=== PATIENT | male | born 1975 | race Caucasian/White ===

== ENCOUNTER 2017-12-08 | Emergency (ER) | END 2017-12-08 19:05 | disposition home or self-care (01) ==

== ENCOUNTER 2018-03-17 10:31 | Emergency (ER) | payer OTHER ==
[~2018-03-17] VITALS: Ht 172.7 cm; Wt 63.5 kg
[~2018-03-17 10:31] MED LIST: ALBU90OI6 INH; Bactrim Ds Tab1 EACH PO; CEPH500 PO; Catapres0.1 MG PO; Cleocin HCl300 MG PO; DOXY100 PO; ENOX60I SC; GABA300 PO; HYDACE5 PO; HYDMOR2 PO; HYDMOR4 PO; HYDMOR8; HYDMOR8 PO; HYDPAM50 PO; HYDR25SUP PR; IBUP400 PO; INSLIS75I SUBQ; Imitrex25 MG PO; Imitrex50 MG PO; KETO30I; Keflex500 MG PO; METO100ER; MORP10S; Miralax17 GM PO; Mobic15 MG PO; Norco 5-325 Ta1 EACH PO; ONDA4ODT MM; ONDA8 PO; OXYC10TA19 PO; OXYC15ER PO; OXYC1TAB11; OXYC30ER PO; OXYC5; OXYC5 PO; PANT40 PO; PREG75 PO; PROM25 PO; Prednisone20 MG PO; RISP1 PO; RXHYDACE PO; SERT100; SULTRIDS PO; TRAM50 PO; Ultram50 MG PO; Valium5 MG PO; Zithromax250 MG PO; Zofran Odt4 MG SL
[2018-03-17] MEDS ORDERED: Inderal 20 mg T20 MG PO (12:39)
[2018-03-17 13:32] LABS: BASOPHILS ABSOLUTE AUTO 0.04 K/mm3 (0.00-0.23); BASOPHILS PERCENT AUTO 1 % (0-2); EOSINOPHILS ABSOLUTE AUTO 0.21 K/mm3 (0.00-0.68); EOSINOPHILS PERCENT AUTO 4 % (0-6); Hematocrit 36.9 % (37.0-53.0); Hemoglobin 12.2 g/dL (13.5-17.5); IMMATURE GRAN ABSOLUTE AUTO 0.01 K/mm3 (0.00-0.10); IMMATURE GRAN PERCENT AUTO 0 % (0-1); LYMPHOCYTES ABSOLUTE AUTO 1.74 K/mm3 (0.84-5.20); LYMPHOCYTES PERCENT AUTO 35 % (21-46); MONOCYTES ABSOLUTE AUTO 0.78 K/mm3 (0.16-1.47); MONOCYTES PERCENT AUTO 15 % (4-13); Mean Corpuscular HGB Conc 33.1 g/dL (31.5-36.5); Mean Corpuscular Volume 91 fL (80-100); Mean Platelet Volume 11.4 fL (9.1-12.4); NEUTROPHILS ABSOLUTE AUTO 2.27 K/mm3 (1.96-9.15); NEUTROPHILS PERCENT AUTO 45 % (41-73); Platelet Count 218 K/mm3 (150-400); RDW Coefficient Variation 14.2 % (11.7-14.2); RDW Standard Deviation 47.5 fL (35.1-46.3); Red Blood Cell Count 4.07 M/mm3 (4.30-5.90); White Blood Cell Count 5.05 K/mm3 (4.00-11.30)
[2018-03-17 14:06] LABS: Alanine Aminotransfer (ALT/SGP 50 U/L (12-78); Albumin, Blood 2.9 g/dL (3.4-5.0); Albumin/Globulin Ratio 0.6 (0.8-1.8); Alk Phos 85 U/L (50-136); Anion Gap 10 mmol/L (6-16); Aspartate Aminotrans (AST/SGOT 50 U/L (12-37); Bilirubin, Total 0.4 mg/dL (0.1-1.0); Blood Urea Nitrogen 12 mg/dL (8-24); Bun/Creatinine Ratio 17.7 (12.0-20.0); CO2, Blood 24 mmol/L (21-32); Calcium, Blood 8.7 mg/dL (8.5-10.1); Chloride, Blood 106 mmol/L (98-108); Creatinine, Blood 0.68 mg/dL (0.60-1.20); Globulin, Blood 5.1 g/dL (2.2-4.0); Glomerular Filtration Rate >60 (60-); Glucose, Blood 71 mg/dL (70-99); Potassium, Blood 3.9 mmol/L (3.5-5.5); Sodium, Blood 140 mmol/L (136-145)
== END 2018-03-17 14:44 | disposition home or self-care (01) ==
LOC: ER 10:31
PROVIDERS: Emergency Medicine
DX: T84.52XA Infection and inflammatory reaction due to internal left hip prosthesis, initial encounter (principal); G43.909 Migraine, unspecified, not intractable, without status migrainosus; F17.210 Nicotine dependence, cigarettes, uncomplicated; Z88.6 Allergy status to analgesic agent; Z88.8 Allergy status to other drugs, medicaments and biological substances; Z88.0 Allergy status to penicillin; Z88.5 Allergy status to narcotic agent; Z79.899 Other long term (current) drug therapy
CPT/HCPCS: 36415; 80053; 85025; 85651; 86141; 96374; 96375; 99284; J2405; J3010

== ENCOUNTER 2018-03-19 16:40 | Emergency (ER) | payer OTHER ==
[~2018-03-19] VITALS: Ht 172.7 cm; Wt 61.2 kg
[~2018-03-19 16:40] MED LIST changes: +Inderal 20 mg T20 MG PO
[2018-03-19] MEDS ORDERED: KETO10 PO (17:06)
== END 2018-03-19 17:12 | disposition home or self-care (01) ==
LOC: ER 16:40
DX: T84.52XA Infection and inflammatory reaction due to internal left hip prosthesis, initial encounter (principal); Z76.0 Encounter for issue of repeat prescription; Z88.6 Allergy status to analgesic agent; Z88.0 Allergy status to penicillin; Z88.5 Allergy status to narcotic agent; Z88.8 Allergy status to other drugs, medicaments and biological substances; Z79.899 Other long term (current) drug therapy; G43.909 Migraine, unspecified, not intractable, without status migrainosus; Z85.3 Personal history of malignant neoplasm of breast; F17.210 Nicotine dependence, cigarettes, uncomplicated
CPT/HCPCS: 99282

== ENCOUNTER 2018-03-25 18:00 | Emergency (ER) | payer OTHER ==
[~2018-03-25] VITALS: Ht 170.2 cm; Wt 60.8 kg
[~2018-03-25 18:00] MED LIST changes: +KETO10 PO
[2018-03-25] MEDS ORDERED: SUMA6I SC (18:08)
== END 2018-03-25 18:42 | disposition home or self-care (01) ==
LOC: ER 18:00
DX: T84.52XA Infection and inflammatory reaction due to internal left hip prosthesis, initial encounter (principal); R51 Headache; I10 Essential (primary) hypertension; Z79.899 Other long term (current) drug therapy
CPT/HCPCS: 96372; 99283; J1885

== ENCOUNTER 2018-06-22 21:12 | Inpatient (IN) | payer OTHER ==
[~2018-06-22] VITALS: Ht 170.2 cm; Wt 59.8 kg
[~2018-06-22 21:12] MED LIST changes: +SUMA6I SC
[2018-06-22] MEDS ORDERED: BUPRENORPHIN-N1 EACH SL (21:30)
[2018-06-22 22:37] LABS: BASOPHILS ABSOLUTE AUTO 0.07 K/mm3 (0.00-0.23); BASOPHILS PERCENT AUTO 1 % (0-2); EOSINOPHILS ABSOLUTE AUTO 0.55 K/mm3 (0.00-0.68); EOSINOPHILS PERCENT AUTO 8 % (0-6); Hematocrit 30.8 % (37.0-53.0); Hemoglobin 9.4 g/dL (13.5-17.5); IMMATURE GRAN ABSOLUTE AUTO 0.01 K/mm3 (0.00-0.10); IMMATURE GRAN PERCENT AUTO 0 % (0-1); LYMPHOCYTES ABSOLUTE AUTO 2.17 K/mm3 (0.84-5.20); LYMPHOCYTES PERCENT AUTO 32 % (21-46); MONOCYTES ABSOLUTE AUTO 0.52 K/mm3 (0.16-1.47); MONOCYTES PERCENT AUTO 8 % (4-13); Mean Corpuscular HGB 23.3 pg (26.0-34.0); Mean Corpuscular HGB Conc 30.5 g/dL (31.5-36.5); Mean Corpuscular Volume 76 fL (80-100); Mean Platelet Volume 12.8 fL (9.1-12.4); NEUTROPHILS ABSOLUTE AUTO 3.49 K/mm3 (1.96-9.15); NEUTROPHILS PERCENT AUTO 51 % (41-73); Platelet Count 281 K/mm3 (150-400); RDW Coefficient Variation 15.7 % (11.7-14.2); RDW Standard Deviation 43.1 fL (35.1-46.3); Red Blood Cell Count 4.03 M/mm3 (4.30-5.90); White Blood Cell Count 6.81 K/mm3 (4.00-11.30)
[2018-06-22 22:55] LABS: Alanine Aminotransfer (ALT/SGP 21 U/L (12-78); Albumin, Blood 3.3 g/dL (3.4-5.0); Albumin/Globulin Ratio 0.7 (0.8-1.8); Alk Phos 101 U/L (50-136); Anion Gap 11 mmol/L (6-16); Aspartate Aminotrans (AST/SGOT 28 U/L (12-37); Bilirubin, Total 0.1 mg/dL (0.1-1.0); Blood Urea Nitrogen 8 mg/dL (8-24); Bun/Creatinine Ratio 14.9 (12.0-20.0); CO2, Blood 24 mmol/L (21-32); Calcium, Blood 8.4 mg/dL (8.5-10.1); Chloride, Blood 104 mmol/L (98-108); Creatinine, Blood 0.54 mg/dL (0.60-1.20); Globulin, Blood 4.9 g/dL (2.2-4.0); Glomerular Filtration Rate >60 (60-); Glucose, Blood 86 mg/dL (70-99); Potassium, Blood 4.4 mmol/L (3.5-5.5); Sodium, Blood 139 mmol/L (136-145); Total Protein, Blood 8.2 g/dL (6.4-8.2)
[2018-06-23 02:32] LABS: Hematocrit 28.6 % (37.0-53.0); Hemoglobin 8.9 g/dL (13.5-17.5); Mean Corpuscular HGB 23.5 pg (26.0-34.0); Mean Corpuscular HGB Conc 31.1 g/dL (31.5-36.5); Mean Corpuscular Volume 76 fL (80-100); Platelet Count 154 K/mm3 (150-400); RDW Coefficient Variation 15.7 % (11.7-14.2); Red Blood Cell Count 3.78 M/mm3 (4.30-5.90); White Blood Cell Count 4.98 K/mm3 (4.00-11.30)
[2018-06-23 02:33] LABS: Mean Platelet Volume 13.3 fL (9.1-12.4)
[2018-06-23 02:45] LABS: Alanine Aminotransfer (ALT/SGP 18 U/L (12-78); Albumin, Blood 3.1 g/dL (3.4-5.0); Albumin/Globulin Ratio 0.7 (0.8-1.8); Alk Phos 91 U/L (50-136); Anion Gap 13 mmol/L (6-16); Aspartate Aminotrans (AST/SGOT 24 U/L (12-37); Bilirubin, Total 0.2 mg/dL (0.1-1.0); Blood Urea Nitrogen 8 mg/dL (8-24); Bun/Creatinine Ratio 14.6 (12.0-20.0); CO2, Blood 22 mmol/L (21-32); Calcium, Blood 8.1 mg/dL (8.5-10.1); Chloride, Blood 107 mmol/L (98-108); Creatinine, Blood 0.55 mg/dL (0.60-1.20); Globulin, Blood 4.4 g/dL (2.2-4.0); Glomerular Filtration Rate >60 (60-); Glucose, Blood 96 mg/dL (70-99); Potassium, Blood 3.8 mmol/L (3.5-5.5); Sodium, Blood 142 mmol/L (136-145); Total Protein, Blood 7.5 g/dL (6.4-8.2)
[2018-06-24 05:41] LABS: BASOPHILS ABSOLUTE AUTO 0.05 K/mm3 (0.00-0.23); BASOPHILS PERCENT AUTO 1 % (0-2); EOSINOPHILS ABSOLUTE AUTO 0.34 K/mm3 (0.00-0.68); EOSINOPHILS PERCENT AUTO 8 % (0-6); Hematocrit 30.5 % (37.0-53.0); Hemoglobin 9.6 g/dL (13.5-17.5); IMMATURE GRAN ABSOLUTE AUTO 0.02 K/mm3 (0.00-0.10); IMMATURE GRAN PERCENT AUTO 1 % (0-1); LYMPHOCYTES ABSOLUTE AUTO 1.21 K/mm3 (0.84-5.20); LYMPHOCYTES PERCENT AUTO 28 % (21-46); MONOCYTES ABSOLUTE AUTO 0.49 K/mm3 (0.16-1.47); MONOCYTES PERCENT AUTO 11 % (4-13); Mean Corpuscular HGB 23.7 pg (26.0-34.0); Mean Corpuscular HGB Conc 31.5 g/dL (31.5-36.5); Mean Corpuscular Volume 75 fL (80-100); NEUTROPHILS ABSOLUTE AUTO 2.24 K/mm3 (1.96-9.15); NEUTROPHILS PERCENT AUTO 52 % (41-73); Platelet Count 173 K/mm3 (150-400); RDW Coefficient Variation 15.5 % (11.7-14.2); RDW Standard Deviation 42.6 fL (35.1-46.3); Red Blood Cell Count 4.05 M/mm3 (4.30-5.90); White Blood Cell Count 4.35 K/mm3 (4.00-11.30)
[2018-06-24 06:04] LABS: Percent Saturation 8.3 % (20.0-50.0)
[2018-06-24 06:13] LABS: Albumin, Blood 3.5 g/dL (3.4-5.0); Anion Gap 12 mmol/L (6-16); Blood Urea Nitrogen 8 mg/dL (8-24); Bun/Creatinine Ratio 12.1 (12.0-20.0); CO2, Blood 23 mmol/L (21-32); Calcium, Blood 9.2 mg/dL (8.5-10.1); Chloride, Blood 105 mmol/L (98-108); Creatinine, Blood 0.66 mg/dL (0.60-1.20); Glomerular Filtration Rate >60 (60-); Glucose, Blood 97 mg/dL (70-99); Phosphorus, Blood 3.5 mg/dL (2.5-4.9); Potassium, Blood 4.1 mmol/L (3.5-5.5); Sodium, Blood 140 mmol/L (136-145)
[2018-06-24] MEDS ORDERED: GABA300T24 PO (12:03)
[2018-06-24] MEDS ORDERED: NICO21TP TOP (12:03)
[2018-06-24] MEDS ORDERED: LEVO750 PO (12:04)
[2018-06-24] MEDS ORDERED: SACC250C PO (12:04)
[2018-06-24] MEDS ORDERED: Hair, Skin & N1 EACH PO (12:04)
== END 2018-06-24 13:21 | disposition home or self-care (01) | DRG 603 ==
LOC: ER 21:12 → MEDS 21:13 → ENPENDDIS 06-24 10:22 → MEDS 06-24 13:21
PROVIDERS: Emergency Medicine; Family Medicine; Internal Medicine
DX: L03.115 Cellulitis of right lower limb (principal); M86.9 Osteomyelitis, unspecified; L03.114 Cellulitis of left upper limb; F11.20 Opioid dependence, uncomplicated; E87.2 Acidosis; Z86.14 Personal history of Methicillin resistant Staphylococcus aureus infection; F17.210 Nicotine dependence, cigarettes, uncomplicated; B35.1 Tinea unguium; G43.909 Migraine, unspecified, not intractable, without status migrainosus; G62.9 Polyneuropathy, unspecified; F41.9 Anxiety disorder, unspecified; F10.10 Alcohol abuse, uncomplicated; F31.9 Bipolar disorder, unspecified; Z91.19 Patient's noncompliance with other medical treatment and regimen
CPT/HCPCS: 36415; 73620; 80053; 80069; 82607; 82728; 82746; 83540; 83550; 83605; 85025; 85027; 87040; 87081; 93970; 96361; 96365; 96366; 96367; 96372; 96375; 99285-25; G0378; J0690; J1650; J2405; J3370; J7030; J7050

== ENCOUNTER 2018-07-12 09:17 | Emergency (ER) | payer OTHER ==
[~2018-07-12] VITALS: Ht 170.2 cm; Wt 59.0 kg
[~2018-07-12 09:17] MED LIST changes: +BUPRENORPHIN-N1 EACH SL; +GABA300T24 PO; +Hair, Skin & N1 EACH PO; +LEVO750 PO; +NICO21TP TOP; +SACC250C PO
[2018-07-12] MEDS ORDERED: Keflex500 MG PO (11:20)
[2018-07-12] MEDS ORDERED: Bactrim Ds Tab1 EACH PO (11:20)
== END 2018-07-12 11:35 | disposition home or self-care (01) ==
LOC: ER 09:17
DX: L03.115 Cellulitis of right lower limb (principal); Z88.6 Allergy status to analgesic agent; Z88.0 Allergy status to penicillin; Z88.5 Allergy status to narcotic agent; Z88.8 Allergy status to other drugs, medicaments and biological substances; Z79.899 Other long term (current) drug therapy; G43.909 Migraine, unspecified, not intractable, without status migrainosus; F17.200 Nicotine dependence, unspecified, uncomplicated
CPT/HCPCS: 93971; 99283-25

== ENCOUNTER 2018-08-16 06:27 | Emergency (ER) | payer OTHER ==
[~2018-08-16] VITALS: Ht 170.2 cm; Wt 60.8 kg
[~2018-08-16 06:27] MED LIST changes: +HYDHCL25 PO
[2018-08-16] MEDS ORDERED: Vistaril50 MG PO (07:37)
== END 2018-08-16 08:40 | disposition home or self-care (01) ==
LOC: ER 06:27
DX: F41.9 Anxiety disorder, unspecified (principal); F22 Delusional disorders; F17.210 Nicotine dependence, cigarettes, uncomplicated; Z88.6 Allergy status to analgesic agent; Z88.8 Allergy status to other drugs, medicaments and biological substances; Z88.0 Allergy status to penicillin; Z88.5 Allergy status to narcotic agent; Z79.899 Other long term (current) drug therapy
CPT/HCPCS: 96372; 99284-25; J1200

== ENCOUNTER 2019-03-10 16:24 | Emergency (ER) | payer OTHER ==
[~2019-03-10] VITALS: Ht 170.2 cm; Wt 62.6 kg
[~2019-03-10 16:24] MED LIST changes: +BUPRENORPHINE HC2 MG SL; +IBUP600 PO; +Vistaril50 MG PO; +Zofran8 MG PO
[2019-03-10 19:20] LABS: BASOPHILS ABSOLUTE AUTO 0.03 K/mm3 (0.00-0.23); BASOPHILS PERCENT AUTO 1 % (0-2); EOSINOPHILS ABSOLUTE AUTO 0.23 K/mm3 (0.00-0.68); EOSINOPHILS PERCENT AUTO 6 % (0-6); Hematocrit 38.8 % (37.0-53.0); Hemoglobin 12.6 g/dL (13.5-17.5); IMMATURE GRAN ABSOLUTE AUTO 0.01 K/mm3 (0.00-0.10); IMMATURE GRAN PERCENT AUTO 0 % (0-1); LYMPHOCYTES ABSOLUTE AUTO 1.24 K/mm3 (0.84-5.20); LYMPHOCYTES PERCENT AUTO 34 % (21-46); MONOCYTES ABSOLUTE AUTO 0.32 K/mm3 (0.16-1.47); MONOCYTES PERCENT AUTO 9 % (4-13); Mean Corpuscular HGB 29.9 pg (26.0-34.0); Mean Corpuscular HGB Conc 32.5 g/dL (31.5-36.5); Mean Corpuscular Volume 92 fL (80-100); Mean Platelet Volume 12.2 fL (9.1-12.4); NEUTROPHILS ABSOLUTE AUTO 1.81 K/mm3 (1.96-9.15); NEUTROPHILS PERCENT AUTO 50 % (41-73); Platelet Count 144 K/mm3 (150-400); RDW Coefficient Variation 15.7 % (11.7-14.2); Red Blood Cell Count 4.22 M/mm3 (4.30-5.90); White Blood Cell Count 3.64 K/mm3 (4.00-11.30)
[2019-03-10 19:44] LABS: Alanine Aminotransfer (ALT/SGP 110 U/L (12-78); Albumin, Blood 3.6 g/dL (3.4-5.0); Albumin/Globulin Ratio 0.8 (0.8-1.8); Alk Phos 86 U/L (50-136); Anion Gap 8 mmol/L (6-16); Aspartate Aminotrans (AST/SGOT 104 U/L (12-37); Bilirubin, Total 0.5 mg/dL (0.1-1.0); Blood Urea Nitrogen 13 mg/dL (8-24); Bun/Creatinine Ratio 16.2 (12.0-20.0); CO2, Blood 25 mmol/L (21-32); Calcium, Blood 8.5 mg/dL (8.5-10.1); Chloride, Blood 105 mmol/L (98-108); Ethanol (Alcohol), Blood, Med 138 mg/dL; Globulin, Blood 4.4 g/dL (2.2-4.0); Glomerular Filtration Rate >60 (60-); Glucose, Blood 107 mg/dL (70-99); Potassium, Blood 3.9 mmol/L (3.5-5.5); Sodium, Blood 138 mmol/L (136-145)
[2019-03-10 20:47] LABS: U Amphetamine Screen Not Detected; U Barbituate Screen Not Detected; U Benzodiazapine Screen Not Detected; U Buprenorphine Screen Not Detected; U Cannabinoids Screen Not Detected; U Cocaine Screen Not Detected; U Methadone Screen Not Detected; U Methamphetamine Screen Not Detected; U Opiates Screen Not Detected; U Oxycodone Screen Not Detected; U Phencyclidine Screen Not Detected; U Propoxyphene Screen Not Detected
== END 2019-03-10 22:58 | disposition home or self-care (01) ==
LOC: ER 16:24
PROVIDERS: Emergency Medicine
DX: R47.1 Dysarthria and anarthria (principal); Z72.89 Other problems related to lifestyle; Z99.3 Dependence on wheelchair; Z89.621 Acquired absence of right hip joint; Z89.622 Acquired absence of left hip joint; Z88.6 Allergy status to analgesic agent; Z88.8 Allergy status to other drugs, medicaments and biological substances; Z88.0 Allergy status to penicillin; Z88.5 Allergy status to narcotic agent; Z79.899 Other long term (current) drug therapy; G43.909 Migraine, unspecified, not intractable, without status migrainosus; Z85.3 Personal history of malignant neoplasm of breast; F17.210 Nicotine dependence, cigarettes, uncomplicated
CPT/HCPCS: 36415; 71260; 80053; 85025; 85379; 93005; 93010; 96374-59; 96375-59; 99284-25; G0480; J1200; J2765; J7120; Q9967

== ENCOUNTER 2019-07-08 18:56 | Emergency (ER) | payer OTHER ==
[~2019-07-08] VITALS: Ht 170.2 cm; Wt 62.1 kg
[2019-07-08 19:51] LABS: BASOPHILS ABSOLUTE AUTO 0.01 K/mm3 (0.00-0.23); BASOPHILS PERCENT AUTO 0 % (0-2); EOSINOPHILS ABSOLUTE AUTO 0.01 K/mm3 (0.00-0.68); EOSINOPHILS PERCENT AUTO 0 % (0-6); Hematocrit 41.6 % (37.0-53.0); Hemoglobin 13.5 g/dL (13.5-17.5); IMMATURE GRAN ABSOLUTE AUTO 0.05 K/mm3 (0.00-0.10); IMMATURE GRAN PERCENT AUTO 1 % (0-1); LYMPHOCYTES ABSOLUTE AUTO 0.57 K/mm3 (0.84-5.20); LYMPHOCYTES PERCENT AUTO 11 % (21-46); MONOCYTES ABSOLUTE AUTO 0.51 K/mm3 (0.16-1.47); MONOCYTES PERCENT AUTO 9 % (4-13); Mean Corpuscular HGB 31.5 pg (26.0-34.0); Mean Corpuscular HGB Conc 32.5 g/dL (31.5-36.5); Mean Corpuscular Volume 97 fL (80-100); Mean Platelet Volume 12.2 fL (9.1-12.4); NEUTROPHILS ABSOLUTE AUTO 4.25 K/mm3 (1.96-9.15); NEUTROPHILS PERCENT AUTO 79 % (41-73); Platelet Count 170 K/mm3 (150-400); RDW Coefficient Variation 13.8 % (11.7-14.2); RDW Standard Deviation 49.1 fL (35.1-46.3); Red Blood Cell Count 4.28 M/mm3 (4.30-5.90)
[2019-07-08 20:16] LABS: Albumin, Blood 3.9 g/dL (3.4-5.0); Albumin/Globulin Ratio 0.9 (0.8-1.8); Alk Phos 198 U/L (50-136); Anion Gap 22 mmol/L (6-16); Bilirubin, Total 3.2 mg/dL (0.1-1.0); Blood Urea Nitrogen 16 mg/dL (8-24); Bun/Creatinine Ratio 11.9 (12.0-20.0); CO2, Blood 17 mmol/L (21-32); Calcium, Blood 9.4 mg/dL (8.5-10.1); Chloride, Blood 93 mmol/L (98-108); Creatinine, Blood 1.35 mg/dL (0.60-1.20); Globulin, Blood 4.4 g/dL (2.2-4.0); Glomerular Filtration Rate >60 (60-); Glucose, Blood 83 mg/dL (70-99); Potassium, Blood 3.3 mmol/L (3.5-5.5); Sodium, Blood 132 mmol/L (136-145); Total Protein, Blood 8.3 g/dL (6.4-8.2)
[2019-07-08 20:41] LABS: Alanine Aminotransfer (ALT/SGP 3118 U/L (12-78); Aspartate Aminotrans (AST/SGOT 13137 U/L (12-37)
[2019-07-08] MEDS ORDERED: CHLO25 PO (21:32)
== END 2019-07-08 22:07 | disposition home or self-care (01) ==
LOC: ER 18:56
PROVIDERS: Physician Assistant
DX: I95.9 Hypotension, unspecified (principal); K70.9 Alcoholic liver disease, unspecified; E87.6 Hypokalemia; F10.239 Alcohol dependence with withdrawal, unspecified; Y90.4 Blood alcohol level of 80-99 mg/100 ml; Z88.6 Allergy status to analgesic agent; Z88.0 Allergy status to penicillin; Z88.5 Allergy status to narcotic agent; Z88.8 Allergy status to other drugs, medicaments and biological substances; Z85.3 Personal history of malignant neoplasm of breast
CPT/HCPCS: 36415; 71045; 80053; 82140; 83605; 83690; 84484; 85025; 87040; 93005; 93010; 96361; 96374; 96376; 99285-25; G0480; J2405; J7030

== ENCOUNTER 2019-08-26 15:27 | Emergency (ER) | payer OTHER ==
[~2019-08-26] VITALS: Ht 170.2 cm; Wt 61.7 kg
[~2019-08-26 15:27] MED LIST changes: +CHLO25 PO
[2019-08-26 16:04] LABS: BASOPHILS ABSOLUTE AUTO 0.06 K/mm3 (0.00-0.23); BASOPHILS PERCENT AUTO 1 % (0-2); EOSINOPHILS ABSOLUTE AUTO 0.42 K/mm3 (0.00-0.68); EOSINOPHILS PERCENT AUTO 6 % (0-6); Hematocrit 37.8 % (37.0-53.0); Hemoglobin 12.4 g/dL (13.5-17.5); IMMATURE GRAN ABSOLUTE AUTO 0.02 K/mm3 (0.00-0.10); IMMATURE GRAN PERCENT AUTO 0 % (0-1); LYMPHOCYTES PERCENT AUTO 17 % (21-46); MONOCYTES ABSOLUTE AUTO 0.58 K/mm3 (0.16-1.47); MONOCYTES PERCENT AUTO 8 % (4-13); Mean Corpuscular HGB 32.5 pg (26.0-34.0); Mean Corpuscular HGB Conc 32.8 g/dL (31.5-36.5); Mean Corpuscular Volume 99 fL (80-100); Mean Platelet Volume 11.5 fL (9.1-12.4); NEUTROPHILS ABSOLUTE AUTO 4.73 K/mm3 (1.96-9.15); NEUTROPHILS PERCENT AUTO 67 % (41-73); Platelet Count 209 K/mm3 (150-400); RDW Coefficient Variation 14.2 % (11.7-14.2); RDW Standard Deviation 51.6 fL (35.1-46.3); Red Blood Cell Count 3.82 M/mm3 (4.30-5.90); White Blood Cell Count 7.01 K/mm3 (4.00-11.30)
[2019-08-26 16:24] LABS: Alanine Aminotransfer (ALT/SGP 46 U/L (12-78); Albumin, Blood 3.1 g/dL (3.4-5.0); Albumin/Globulin Ratio 0.6 (0.8-1.8); Alk Phos 126 U/L (50-136); Anion Gap 14 mmol/L (6-16); Aspartate Aminotrans (AST/SGOT 55 U/L (12-37); Bilirubin, Total 0.4 mg/dL (0.1-1.0); Blood Urea Nitrogen 8 mg/dL (8-24); Bun/Creatinine Ratio 10.1 (12.0-20.0); CO2, Blood 21 mmol/L (21-32); Calcium, Blood 8.5 mg/dL (8.5-10.1); Chloride, Blood 102 mmol/L (98-108); Creatinine, Blood 0.79 mg/dL (0.60-1.20); Globulin, Blood 4.9 g/dL (2.2-4.0); Glomerular Filtration Rate >60 (60-); Glucose, Blood 108 mg/dL (70-99); Potassium, Blood 3.2 mmol/L (3.5-5.5); Sodium, Blood 137 mmol/L (136-145)
[2019-08-26] MEDS ORDERED: ALBU90OI INH (17:33)
[2019-08-26] MEDS ORDERED: Prednisone20 MG PO (17:33)
[2019-08-26] MEDS ORDERED: Bactrim Ds Tab1 EACH PO (17:33)
[2019-10-30] MEDS ORDERED: FOLI1 PO (19:15)
[2019-10-30] MEDS ORDERED: ALBU90OI INH (19:15)
[2019-10-30] MEDS ORDERED: Bactrim Ds Tab1 EACH PO (19:19)
== END 2019-08-26 18:15 | disposition home or self-care (01) ==
LOC: ER 15:27
PROVIDERS: Internal Medicine
DX: J45.909 Unspecified asthma, uncomplicated (principal); F17.200 Nicotine dependence, unspecified, uncomplicated; Z85.3 Personal history of malignant neoplasm of breast; Z88.6 Allergy status to analgesic agent; Z88.0 Allergy status to penicillin; Z88.5 Allergy status to narcotic agent; Z88.8 Allergy status to other drugs, medicaments and biological substances; Z79.899 Other long term (current) drug therapy
CPT/HCPCS: 36415; 71046; 80053; 85025; 93005; 93010; 94640; 99284-25

== ENCOUNTER 2019-09-01 06:50 | Emergency (ER) | payer OTHER ==
[~2019-09-01] VITALS: Ht 170.2 cm; Wt 62.1 kg
[~2019-09-01 06:50] MED LIST changes: +ALBU90OI INH
[2019-09-01 08:29] LABS: Source, Urine Clean Catch
[2019-09-01 08:38] LABS: BASOPHILS ABSOLUTE AUTO 0.08 K/mm3 (0.00-0.23); BASOPHILS PERCENT AUTO 1 % (0-2); EOSINOPHILS ABSOLUTE AUTO 0.12 K/mm3 (0.00-0.68); EOSINOPHILS PERCENT AUTO 2 % (0-6); Hemoglobin 12.4 g/dL (13.5-17.5); IMMATURE GRAN ABSOLUTE AUTO 0.24 K/mm3 (0.00-0.10); IMMATURE GRAN PERCENT AUTO 3 % (0-1); LYMPHOCYTES ABSOLUTE AUTO 2.09 K/mm3 (0.84-5.20); LYMPHOCYTES PERCENT AUTO 30 % (21-46); MONOCYTES ABSOLUTE AUTO 0.63 K/mm3 (0.16-1.47); MONOCYTES PERCENT AUTO 9 % (4-13); Mean Corpuscular HGB 31.8 pg (26.0-34.0); Mean Corpuscular HGB Conc 31.8 g/dL (31.5-36.5); Mean Corpuscular Volume 100 fL (80-100); Mean Platelet Volume 11.3 fL (9.1-12.4); NEUTROPHILS ABSOLUTE AUTO 3.91 K/mm3 (1.96-9.15); NEUTROPHILS PERCENT AUTO 55 % (41-73); Platelet Count 237 K/mm3 (150-400); RDW Coefficient Variation 13.6 % (11.7-14.2); RDW Standard Deviation 50.1 fL (35.1-46.3); White Blood Cell Count 7.07 K/mm3 (4.00-11.30)
[2019-09-01 08:39] LABS: Appearance, Urine Clear (Clear); Bilirubin, Urine Neg (Neg); Blood, Urine Neg (Neg); Color, Urine Yellow (P-Yellow); Glucose Qualitative, Urine Neg (Neg); Ketones, Urine Neg (Neg); Leukocyte Esterase, Urine Neg (Neg); Nitrite, Urine Neg (Neg); Protein, Urine Neg (Neg); Specific Gravity, Urine 1.005 (1.003-1.022); Urobilinogen, Urine NORM (Normal); pH, Urine 6.5 (5.0-8.0)
[2019-09-01 09:01] LABS: Alanine Aminotransfer (ALT/SGP 56 U/L (12-78); Albumin, Blood 3.2 g/dL (3.4-5.0); Albumin/Globulin Ratio 0.7 (0.8-1.8); Alk Phos 120 U/L (50-136); Anion Gap 10 mmol/L (6-16); Aspartate Aminotrans (AST/SGOT 72 U/L (12-37); Bilirubin, Total 0.4 mg/dL (0.1-1.0); Blood Urea Nitrogen 16 mg/dL (8-24); CO2, Blood 25 mmol/L (21-32); Calcium, Blood 8.4 mg/dL (8.5-10.1); Chloride, Blood 101 mmol/L (98-108); Creatinine, Blood 0.76 mg/dL (0.60-1.20); Globulin, Blood 4.7 g/dL (2.2-4.0); Glomerular Filtration Rate >60 (60-); Glucose, Blood 91 mg/dL (70-99); Potassium, Blood 3.5 mmol/L (3.5-5.5); Sodium, Blood 136 mmol/L (136-145); Total Protein, Blood 7.9 g/dL (6.4-8.2)
[2019-10-30] MEDS ORDERED: FOLI1 PO (19:15)
[2019-10-30] MEDS ORDERED: ALBU90OI INH (19:15)
[2019-10-30] MEDS ORDERED: Bactrim Ds Tab1 EACH PO (19:19)
== END 2019-09-01 10:25 | disposition home or self-care (01) ==
LOC: ER 06:50
PROVIDERS: Emergency Medicine
DX: M13.0 Polyarthritis, unspecified (principal); F17.210 Nicotine dependence, cigarettes, uncomplicated; Z85.3 Personal history of malignant neoplasm of breast; Z88.8 Allergy status to other drugs, medicaments and biological substances; Z88.6 Allergy status to analgesic agent; Z88.0 Allergy status to penicillin; Z88.5 Allergy status to narcotic agent; Z79.899 Other long term (current) drug therapy; Z79.52 Long term (current) use of systemic steroids
CPT/HCPCS: 36415; 80053; 81003; 85025; 85651; 96374; 96375; 99283-25; J1100; J1885

== ENCOUNTER 2019-10-05 18:32 | Emergency (ER) | payer OTHER ==
[~2019-10-05] VITALS: Ht 165.1 cm; Wt 68.0 kg
[2019-10-05] MEDS ORDERED: LIDO700A20 TOP (22:47)
[2019-10-05] MEDS ORDERED: ACETAMINOPHEN500 MG PO (22:47)
[2019-10-30] MEDS ORDERED: FOLI1 PO (19:15)
[2019-10-30] MEDS ORDERED: ALBU90OI INH (19:15)
[2019-10-30] MEDS ORDERED: Bactrim Ds Tab1 EACH PO (19:19)
== END 2019-10-05 23:16 | disposition home or self-care (01) ==
LOC: ER 18:32
DX: G89.29 Other chronic pain (principal); M25.551 Pain in right hip; Z88.6 Allergy status to analgesic agent; Z88.8 Allergy status to other drugs, medicaments and biological substances; Z88.0 Allergy status to penicillin; Z88.5 Allergy status to narcotic agent
CPT/HCPCS: 99283

== ENCOUNTER 2020-03-03 18:01 | Inpatient (IN) | payer OTHER ==
[~2020-03-03] VITALS: Ht 170.2 cm; Wt 67.0 kg
[~2020-03-03 18:01] MED LIST changes: +ACETAMINOPHEN500 MG PO; +FOLI1 PO; +LIDO700A20 TOP
[2020-03-03 19:48] LABS: BASOPHILS ABSOLUTE AUTO 0.05 K/mm3 (0.00-0.23); BASOPHILS PERCENT AUTO 1 % (0-2); EOSINOPHILS ABSOLUTE AUTO 0.18 K/mm3 (0.00-0.68); EOSINOPHILS PERCENT AUTO 3 % (0-6); Hematocrit 33.3 % (37.0-53.0); Hemoglobin 12.1 g/dL (13.5-17.5); IMMATURE GRAN ABSOLUTE AUTO 0.04 K/mm3 (0.00-0.10); IMMATURE GRAN PERCENT AUTO 1 % (0-1); LYMPHOCYTES ABSOLUTE AUTO 1.18 K/mm3 (0.84-5.20); LYMPHOCYTES PERCENT AUTO 22 % (21-46); MONOCYTES ABSOLUTE AUTO 0.44 K/mm3 (0.16-1.47); MONOCYTES PERCENT AUTO 8 % (4-13); Mean Corpuscular HGB 34.5 pg (26.0-34.0); Mean Corpuscular HGB Conc 36.3 g/dL (31.5-36.5); Mean Corpuscular Volume 95 fL (80-100); NEUTROPHILS ABSOLUTE AUTO 3.57 K/mm3 (1.96-9.15); NEUTROPHILS PERCENT AUTO 65 % (41-73); Platelet Count 84 K/mm3 (150-400); RDW Coefficient Variation 20.2 % (11.7-14.2); RDW Standard Deviation 68.4 fL (35.1-46.3); Red Blood Cell Count 3.51 M/mm3 (4.30-5.90); White Blood Cell Count 5.46 K/mm3 (4.00-11.30)
[2020-03-03 19:54] LABS: Mean Platelet Volume 13.1 fL (9.1-12.4)
[2020-03-03 19:58] LABS: Alanine Aminotransfer (ALT/SGP 164 U/L (12-78); Albumin, Blood 1.9 g/dL (3.4-5.0); Albumin/Globulin Ratio 0.4 (0.8-1.8); Alk Phos 318 U/L (50-136); Anion Gap 9 mmol/L (6-16); Aspartate Aminotrans (AST/SGOT 306 U/L (12-37); Bilirubin, Total 8.5 mg/dL (0.1-1.0); Blood Urea Nitrogen 11 mg/dL (8-24); Bun/Creatinine Ratio 15.2 (12.0-20.0); CO2, Blood 23 mmol/L (21-32); Calcium, Blood 7.7 mg/dL (8.5-10.1); Chloride, Blood 104 mmol/L (98-108); Creatinine, Blood 0.72 mg/dL (0.60-1.20); Globulin, Blood 5.1 g/dL (2.2-4.0); Glomerular Filtration Rate >60 (60-); Glucose, Blood 146 mg/dL (70-99); Potassium, Blood 3.7 mmol/L (3.5-5.5); Sodium, Blood 136 mmol/L (136-145)
[2020-03-03 23:14] LABS: International Normalized Ratio 1.74
--- NOTE | 2020-03-04 03:01 | NUR ---
DIE MOUNTER SUMMARY PT ARRIVED TO UNIT VIA STRETCHER AT 0113. INTRODUCED TO STAFF AND ROOM. A/O X4. PT IS WHEELCHAIR BOUND. PT IS ABLE TO SCOOT SELF FROM BED, TO AND BSC WITH SUPERVISION. PT COMPLAINED OF ABD PAIN AND RATES IT 7/10. PT STATES FENTANYL HE RECIEVED IN THE ER DOES NOT HELP WITH PAIN FOR LONG, LASTS ABOUT [address] NIXON NOTIFIED. DILAUDID 1-2 MG Q6 PRN ORDERED. WHEN I CAME BACK TO ROOM, PT WAS ASLEEP AND APPEARED DROWSY WHEN WOKEN UP. DILAUDID NOT GIVEN AT THIS TIME. BILATERAL NARES AND THROAT SWABBED FOR MRSA CLEARANCE. NO OPEN WOUND NOTICIED. PT INSTRUCTED TO USE CALL LIGHT WHEN UP. CALLS APPROPRIATELY. CURRENTLY ASLEEP. IV RUNNING AT 75ML/HR.
[2020-03-04 05:24] LABS: BASOPHILS ABSOLUTE AUTO 0.04 K/mm3 (0.00-0.23); BASOPHILS PERCENT AUTO 1 % (0-2); EOSINOPHILS ABSOLUTE AUTO 0.24 K/mm3 (0.00-0.68); EOSINOPHILS PERCENT AUTO 5 % (0-6); Hemoglobin 11.7 g/dL (13.5-17.5); IMMATURE GRAN ABSOLUTE AUTO 0.02 K/mm3 (0.00-0.10); IMMATURE GRAN PERCENT AUTO 0 % (0-1); LYMPHOCYTES ABSOLUTE AUTO 1.32 K/mm3 (0.84-5.20); LYMPHOCYTES PERCENT AUTO 25 % (21-46); MONOCYTES ABSOLUTE AUTO 0.54 K/mm3 (0.16-1.47); MONOCYTES PERCENT AUTO 10 % (4-13); Mean Corpuscular HGB 33.8 pg (26.0-34.0); Mean Corpuscular HGB Conc 35.5 g/dL (31.5-36.5); Mean Corpuscular Volume 95 fL (80-100); Mean Platelet Volume 12.9 fL (9.1-12.4); NEUTROPHILS ABSOLUTE AUTO 3.19 K/mm3 (1.96-9.15); NEUTROPHILS PERCENT AUTO 60 % (41-73); Platelet Count 84 K/mm3 (150-400); RDW Coefficient Variation 20.8 % (11.7-14.2); Red Blood Cell Count 3.46 M/mm3 (4.30-5.90); White Blood Cell Count 5.35 K/mm3 (4.00-11.30)
[2020-03-04 05:46] LABS: Alanine Aminotransfer (ALT/SGP 166 U/L (12-78); Albumin/Globulin Ratio 0.4 (0.8-1.8); Alk Phos 309 U/L (50-136); Anion Gap 8 mmol/L (6-16); Aspartate Aminotrans (AST/SGOT 320 U/L (12-37); Bilirubin, Total 9.3 mg/dL (0.1-1.0); Blood Urea Nitrogen 11 mg/dL (8-24); Bun/Creatinine Ratio 13.6 (12.0-20.0); CO2, Blood 21 mmol/L (21-32); Calcium, Blood 7.5 mg/dL (8.5-10.1); Chloride, Blood 108 mmol/L (98-108); Creatinine, Blood 0.81 mg/dL (0.60-1.20); Glomerular Filtration Rate >60 (60-); Glucose, Blood 97 mg/dL (70-99); Potassium, Blood 4.1 mmol/L (3.5-5.5); Sodium, Blood 137 mmol/L (136-145)
[2020-03-04 11:28] LABS: Source, Urine Clean Catch
[2020-03-04 11:31] LABS: Blood, Urine 1+ (Neg); Glucose Qualitative, Urine Neg (Neg); Ketones, Urine 1+ (Neg); Leukocyte Esterase, Urine 1+ (Neg); Nitrite, Urine Neg (Neg); Protein, Urine 1+ (Neg); Specific Gravity, Urine 1.015 (1.003-1.022); Urobilinogen, Urine 2+ (Normal)
[2020-03-04 11:47] LABS: Bilirubin, Urine 3+ (Neg)
[2020-03-04 11:48] LABS: Appearance, Urine Clear (Clear); Color, Urine Amber (P-Yellow)
[2020-03-04 11:49] LABS: Bacteria Few /hpf; Squamous Epithelial Cells Rare /hpf (Few)
--- NOTE | 2020-03-04 17:51 | NUR ---
SHIFT SUMMARY: ALERT AND COOPERATIVE THIS SHIFT, NO ACUTE EVENTS. CIWA SCORE HAS BEEN < 8, VERY MILD SXS AT THIS TIME. C/O MODERATE TO SEVERE PAIN IN RUQ AND THROUGHOUT ABDOMEN; MEDICATED PER EMAR. PATIENT IS WATCHING THE CLOCK FOR PAIN MEDS. 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 UA SENT; URINE IS DARK ATIYA, VOIDS SMALL AMOUNTS FREQUENTLY. ON RA DURING THE DAY, BUT NEEDED O2 @ 3 L/MIN NC O/N LAST NIGHT. GETS UP TO HIS W/C INDPENDENTLY, ASKED STAFF FREQUENTLY TO TAKE HIM ON "WALKS" AROUND THE UNIT. SKIN IS MILDLY JAUNDICED, DENIES ITCHING OR DISCOMFORT. PLAN IS TO BE NPO AND NO NARCOTIC PAIN MEDS AFTER 0200 FOR HIDA SCAN TOMORROW MORNING.
[2020-03-05 06:48] LABS: International Normalized Ratio 2.07; Prothrombin Time Results 21.3 Sec (9.7-11.5)
[2020-03-05 07:52] LABS: BASOPHILS ABSOLUTE AUTO 0.04 K/mm3 (0.00-0.23); BASOPHILS PERCENT AUTO 1 % (0-2); EOSINOPHILS ABSOLUTE AUTO 0.11 K/mm3 (0.00-0.68); EOSINOPHILS PERCENT AUTO 3 % (0-6); Hematocrit 30.9 % (37.0-53.0); Hemoglobin 11.1 g/dL (13.5-17.5); Mean Corpuscular HGB 34.3 pg (26.0-34.0); Mean Corpuscular HGB Conc 35.9 g/dL (31.5-36.5); Mean Corpuscular Volume 95 fL (80-100); Platelet Count 68 K/mm3 (150-400); RDW Coefficient Variation 20.8 % (11.7-14.2); RDW Standard Deviation 70.8 fL (35.1-46.3); Red Blood Cell Count 3.24 M/mm3 (4.30-5.90)
[2020-03-05 07:55] LABS: IMMATURE GRAN ABSOLUTE AUTO 0.03 K/mm3 (0.00-0.10); IMMATURE GRAN PERCENT AUTO 1 % (0-1); LYMPHOCYTES ABSOLUTE AUTO 1.04 K/mm3 (0.84-5.20); LYMPHOCYTES PERCENT AUTO 24 % (21-46); MONOCYTES ABSOLUTE AUTO 0.44 K/mm3 (0.16-1.47); MONOCYTES PERCENT AUTO 10 % (4-13); Mean Platelet Volume 13.6 fL (9.1-12.4); NEUTROPHILS ABSOLUTE AUTO 2.74 K/mm3 (1.96-9.15); NEUTROPHILS PERCENT AUTO 62 % (41-73)
[2020-03-05 08:12] LABS: Alanine Aminotransfer (ALT/SGP 206 U/L (12-78); Albumin/Globulin Ratio 0.4 (0.8-1.8); Alk Phos 297 U/L (50-136); Anion Gap 8 mmol/L (6-16); Aspartate Aminotrans (AST/SGOT 430 U/L (12-37); Bilirubin, Total 12.1 mg/dL (0.1-1.0); Blood Urea Nitrogen 10 mg/dL (8-24); Bun/Creatinine Ratio 11.8 (12.0-20.0); CO2, Blood 22 mmol/L (21-32); Calcium, Blood 7.9 mg/dL (8.5-10.1); Chloride, Blood 105 mmol/L (98-108); Creatinine, Blood 0.84 mg/dL (0.60-1.20); Globulin, Blood 4.8 g/dL (2.2-4.0); Glomerular Filtration Rate >60 (60-); Glucose, Blood 98 mg/dL (70-99); Potassium, Blood 4.2 mmol/L (3.5-5.5); Sodium, Blood 135 mmol/L (136-145); Total Protein, Blood 6.8 g/dL (6.4-8.2)
[2020-03-05] MEDS ORDERED: CLON.1 PO (09:27)
[2020-03-05] MEDS ORDERED: METO25ER PO (09:29)
[2020-03-05] MEDS ORDERED: ARIPIPRAZOLE10 M1 PO (09:30)
--- NOTE | 2020-03-05 09:37 | NUR ---
DR BRODERICK NOTIFIED OF CIWA OF 10 THIS MORNING, MED RED COMPLETED, THAT PATIENT DID NOT COMPLETE HIDA SCAN, AND THIS NURSE INQUIRED ABOUT DIET ORDER POST HIDA SCAN. DR BRODERICK TO REVIEW CHART AND MEDICATIONS AND INPUT NEW ORDERS APPLICABLE.
--- NOTE | 2020-03-05 11:04 | NUR ---
REPORT GIVEN TO FRANCIA SINHA RN WHO WILL ASSUME CARE AT THIS TIME. THIS NURSE NOT ABLE TO PROVIDE CARE FURTHER PATIENT HAS NUCLEAR MED STUDY COMPLETED THIS AM.
--- NOTE | 2020-03-05 16:54 | NUR ---
DISCUSSED PT CONFUSION, ALSO THE HIDASCAN TOMORROW. HOLD NARCOTICS AND NPO BOTH MIDNITE. NOT ABLE TO USE TORADOL. DR AGREED TO PLACE ORDER LIBRIUM. ALSO TO CANCEL FENTANYL ORDERS.
--- NOTE | 2020-03-05 18:46 | NUR ---
CALLED DR BRODERICK NO ORDRES FOR LIBRIUM YET. CHAD ORDCHARITO 25 MG LIBRIULM, PO Q6P. DONE
--- NOTE | 2020-03-05 19:46 | NUR ---
PT ALERT TO SELF FAMILY AND PLACE TODAY. DID HAVE MOMENTS OF CONFUSION, MORE THAN OTHERS. SISTER AND NEICE IN TO SEE HIM TODAY. HE TALKED MORE WHEN THEY WERE HERE. ORDERS RECEIVED FOR LIBRIUM. PASSED TO NIGHT RN. NPO AND HOLDING NARCOTICS FOR HIDASCAN TOMORROW ATTEMPT. BED IN LOW POSITION, CALL LITE IN REACH, BED ALARM ON FOR SAFETY
--- NOTE | 2020-03-06 02:00 | NUR ---
CIWAS CONTINUE. PT CONTINUES TO ATTEMPT TO GET OUT OF BED EVEN WHEN INSTRUCTED TO WAIT FOR ASSIST. BED ALARM ON. HAS HAD ANXIOLYTICS ORDERED FOR S/S WITHDRAWL. SEE MAR FOR DETAILS. CALL LIGHT IN REACH.
[2020-03-06 05:29] LABS: BASOPHILS ABSOLUTE AUTO 0.02 K/mm3 (0.00-0.23); BASOPHILS PERCENT AUTO 1 % (0-2); EOSINOPHILS ABSOLUTE AUTO 0.08 K/mm3 (0.00-0.68); EOSINOPHILS PERCENT AUTO 3 % (0-6); Hematocrit 27.5 % (37.0-53.0); Hemoglobin 9.7 g/dL (13.5-17.5); IMMATURE GRAN ABSOLUTE AUTO 0.02 K/mm3 (0.00-0.10); IMMATURE GRAN PERCENT AUTO 1 % (0-1); LYMPHOCYTES PERCENT AUTO 25 % (21-46); MONOCYTES ABSOLUTE AUTO 0.37 K/mm3 (0.16-1.47); MONOCYTES PERCENT AUTO 13 % (4-13); Mean Corpuscular HGB Conc 35.3 g/dL (31.5-36.5); Mean Corpuscular Volume 97 fL (80-100); NEUTROPHILS ABSOLUTE AUTO 1.64 K/mm3 (1.96-9.15); NEUTROPHILS PERCENT AUTO 58 % (41-73); Platelet Count 57 K/mm3 (150-400); RDW Coefficient Variation 21.4 % (11.7-14.2); Red Blood Cell Count 2.85 M/mm3 (4.30-5.90); White Blood Cell Count 2.83 K/mm3 (4.00-11.30)
[2020-03-06 05:34] LABS: International Normalized Ratio 2.08; Prothrombin Time Results 21.4 Sec (9.7-11.5)
[2020-03-06 05:35] LABS: Mean Platelet Volume 13.9 fL (9.1-12.4)
[2020-03-06 05:50] LABS: Alanine Aminotransfer (ALT/SGP 159 U/L (12-78); Albumin, Blood 1.8 g/dL (3.4-5.0); Albumin/Globulin Ratio 0.4 (0.8-1.8); Alk Phos 263 U/L (50-136); Anion Gap 8 mmol/L (6-16); Aspartate Aminotrans (AST/SGOT 305 U/L (12-37); Bilirubin, Total 13.2 mg/dL (0.1-1.0); Blood Urea Nitrogen 7 mg/dL (8-24); Bun/Creatinine Ratio 9.4 (12.0-20.0); CO2, Blood 23 mmol/L (21-32); Calcium, Blood 7.7 mg/dL (8.5-10.1); Chloride, Blood 109 mmol/L (98-108); Creatinine, Blood 0.74 mg/dL (0.60-1.20); Globulin, Blood 4.4 g/dL (2.2-4.0); Glomerular Filtration Rate >60 (60-); Glucose, Blood 115 mg/dL (70-99); Potassium, Blood 3.8 mmol/L (3.5-5.5); Sodium, Blood 140 mmol/L (136-145); Total Protein, Blood 6.2 g/dL (6.4-8.2)
--- NOTE | 2020-03-06 06:00 | NUR ---
LATE MACHINE MAINTENANCE SUPERVISOR SUMMARY FROM 03/04 MACHINE MAINTENANCE SUPERVISOR Patient awake all night. Very tremulous, confused and impulsive. Unable to follow commands, Patient kept getting out of bed trying to go outside to smoke, or to take a 'walk' in the halls. It was explained to him several times that he needed to call, and that he was too weak and ill to be outside or up in halls independently. Patient complained of constant pain in his abdomen and back requesting narcotic pain meds by name constantly.Each were given at intervals prescribed by MD. Ativan used as well per order for alchohol withdrawel. Concerned patient was going to fall on floor as he required so much medication to tolerate withdrawel. Patient received no pain or withdrawel medication after 0200 per orders for Hida Scan withdrawel.
--- NOTE | 2020-03-06 06:12 | NUR ---
SHIFT SUMMARY AWAKE AT INTERVALS THIS SHIFT, SOME ANXIETY DISPLAYED HE WOULD TRY TO GET OOB AND THE BED ALARM WOULD GO OFF. MULTIPLE ATTEMPTS AT REDIRECTION. ATIVAN GIVEN. NPO SINCE 2400, AND NO NARCOTICS SINCE 2400 PER MD ORDERS FOR HIDESCAN THIS AM. FAMILY IN THIS AM, PT SIGNED CONSENT. NUCLEAR MED CALLED THIS AM, STATED PROCEDURE WOULD BE BETWEEN 0800 AND 0815. CALL LIGHT IN REACH. BED ALARM ON. MULTIPLE ATTEMPTS TO START NEW IV UNSUCCESSFUL. WILL HAVE AM F/U WITH LINE PROCEDURE STAFF.
--- NOTE | 2020-03-06 07:30 | NUR ---
PT PLEASSNT COOP A/O X3, ABLE TO TELL ME PRESIDENT, DATE, PLACE, FAMILY, . AGE. PAIN IN SHOULDERS, HIPS, KNEES. JOINT PAIN. UNABLE TO MEDICATE UNTIL AFTER HIDASCAN. PT IS SLOW SPEACH, SOMEWHAT GARBLED. CONFUSED AT TIMES. H/R REG, NO MURMER NOTED. NO TELE. LUNGS CLEAR, RESP EASYK, UNLABORED ON R/A. BT X4 HYPER. ABD FIRM DISTENDED. LAST BM THIS AM, DIARRHEA. SKIN JAUNDICED. VOIDS BSC, OLIGURIC. 1 ASST TO BSC. WHEELCHAIR BOUND AT BASELINE. BED IN LOW POSITIION, CALL LITE IN REACH, BED ALARM ON FOR SFETY, IS IMPULSIVE.
--- NOTE | 2020-03-06 17:48 | NUR ---
PT RESTING AND SLEEPING MUCH OF DAY. HAS HAD TIMES OF PRETTY MUCH AWAKE AND ORIENTED. CAN TELL ME DATE, , PRESIDENT, FAMILY, THEN ALSO TIMES OF BARELY AWAKE AND ORIENTED. JUST NOW, HE STATES CURRENT PRES IS [place]. OKAY WITH , BUT February, IS DATE. ABLE TO TELL ME SOME RELATIVES. THEN DROPS OFF TO SLEEP STATE. HELD ATIVAN SINCE HIDASCAN TODAY. MED FOR PAIN ONCE SOMEWHAT LETHARGIC. NO OTHER CONCERNS AT THIS TIME. BED IN LOW POSITION, CALL LITE IN REACH. BED ALARM ON FOR SAFETY
[2020-03-06 19:18] LABS: U Amphetamine Screen DETECTED; U Barbituate Screen Not Detected; U Benzodiazapine Screen DETECTED; U Cocaine Screen Not Detected; U Methadone Screen Not Detected; U Methamphetamine Screen DETECTED; U Opiates Screen DETECTED
[2020-03-06 19:19] LABS: U Buprenorphine Screen Not Detected; U Cannabinoids Screen Not Detected; U Oxycodone Screen Not Detected; U Phencyclidine Screen Not Detected; U Propoxyphene Screen Not Detected
--- NOTE | 2020-03-06 21:08 | NUR ---
PT CONTINUED TO ATTEMPT TO GET OUT OF BED EVEN WITH ALARM ON AND NON RECEPTIVE TO REDIRECTIO, PT RELOCATED TO SCU [facility] - ROOM 353 FOR CLOSER OBSERVATION. REPORT GIVEN. CAll light in reach.
--- NOTE | 2020-03-06 21:14 | NUR ---
TRANSFER REPORT TAKEN FROM FELICIANO CERDA RN TO ASSUME CARE OF PT AT THIS TIME. PT TRANSFERED FROM 331 TO SCU 354 DUE TO INCREASED AGITATION. BELONGINGS IN PLACE. PT DENIES NEEDS, NO S/S OF DISTRESS.
[2020-03-07 05:15] LABS: BASOPHILS ABSOLUTE AUTO 0.03 K/mm3 (0.00-0.23); BASOPHILS PERCENT AUTO 1 % (0-2); EOSINOPHILS ABSOLUTE AUTO 0.11 K/mm3 (0.00-0.68); EOSINOPHILS PERCENT AUTO 4 % (0-6); Hematocrit 29.4 % (37.0-53.0); Mean Corpuscular HGB 33.6 pg (26.0-34.0); Mean Corpuscular Volume 99 fL (80-100); RDW Coefficient Variation 22.5 % (11.7-14.2); RDW Standard Deviation 79.1 fL (35.1-46.3); Red Blood Cell Count 2.98 M/mm3 (4.30-5.90); White Blood Cell Count 2.86 K/mm3 (4.00-11.30)
[2020-03-07 05:27] LABS: International Normalized Ratio 2.07; Prothrombin Time Results 21.3 Sec (9.7-11.5)
--- NOTE | 2020-03-07 05:33 | NUR ---
SHIFT SUMMARY PT TRANSFERRED TO THE SCU THIS SHIFT. PT CONTINUES TO CLIMB OOB OF BED. MOST TIMES IT IS WHEN HE NEEDS TO USE THE BATHROOM. PT IS A/OX1, SPEECH IS GARBLED AND NONSENSICAL. PT ANSWERS SOME OF MY QUESTIONS, BUT ALOT OF MY QUESTIONS HE IS UNABLE TO GIVE AN ANSWER. LACTULOSE CONTINUED ORDRED AND GIVEN JUST SHORTLY AFTER TRANSFER. PT CONTINUES TO HAVE BM'S, INCONTINENT AT TIMES. VISUAL HALLUCINATIONS AT TIMES. PT APPEARS GENERALLY SLEEPY AND LETHARGIC, BUT FINDS IT DIFFICULT TO ACTUALLY REST. VITALS ARE STABLE. CIWA'S BETWEEN 7 AND 11. MEDICATED WITH LIBRIUM WITH AFFECT. OXYCODONE GIVEN FOR PAIN WITH AFFECT. NO ACUTE CHANGES TO REPORT. BED IN LOWEST POSITION, CALL LIGHT WITHIN REACH. WILL CONTINUE TO MONITOR AND REPORT TO ONCOMING RN.
[2020-03-07 05:43] LABS: Alanine Aminotransfer (ALT/SGP 126 U/L (12-78); Albumin, Blood 1.7 g/dL (3.4-5.0); Albumin/Globulin Ratio 0.4 (0.8-1.8); Alk Phos 268 U/L (50-136); Anion Gap 7 mmol/L (6-16); Aspartate Aminotrans (AST/SGOT 188 U/L (12-37); Bilirubin, Total 14.3 mg/dL (0.1-1.0); Blood Urea Nitrogen 6 mg/dL (8-24); Bun/Creatinine Ratio 7.9 (12.0-20.0); CO2, Blood 23 mmol/L (21-32); Calcium, Blood 7.8 mg/dL (8.5-10.1); Chloride, Blood 109 mmol/L (98-108); Creatinine, Blood 0.76 mg/dL (0.60-1.20); Globulin, Blood 4.6 g/dL (2.2-4.0); Glomerular Filtration Rate >60 (60-); Glucose, Blood 120 mg/dL (70-99); IMMATURE GRAN ABSOLUTE AUTO 0.03 K/mm3 (0.00-0.10); IMMATURE GRAN PERCENT AUTO 1 % (0-1); LYMPHOCYTES ABSOLUTE AUTO 0.73 K/mm3 (0.84-5.20); LYMPHOCYTES PERCENT AUTO 26 % (21-46); MONOCYTES PERCENT AUTO 11 % (4-13); NEUTROPHILS ABSOLUTE AUTO 1.66 K/mm3 (1.96-9.15); NEUTROPHILS PERCENT AUTO 58 % (41-73); Platelet Count 33 K/mm3 (150-400); Potassium, Blood 3.9 mmol/L (3.5-5.5); Sodium, Blood 139 mmol/L (136-145); Total Protein, Blood 6.3 g/dL (6.4-8.2)
[2020-03-07 09:08] LABS: HBSAG SCREEN Negative (Negative); HEP B CORE AB, TOT Negative (Negative); HEP C VIRUS AB >11.0 (0.0-0.9)
--- NOTE | 2020-03-07 14:07 | NUR ---
CALLED DR LEE SHE IS AWARE OF THE SPIRONOLACTONE BEING HELD THIS MORNING AND THE PT BP THIS AFTERNOON LESS THAN 90 SO PROPRANOLOL WAS HELD. NO NEW ORDERS AT THIS TIME. WILL CTM.
--- NOTE | 2020-03-07 18:43 | NUR ---
SHIFT SUMMARY- PT ORIENTED TO SELF AND FAMILY. MULTIPLE PHONE CALLS TO THE ROOM TODAY AND THE PT WOULD ANSWER THE PHON AND HANG IT UP HE TOLD STAFF HE DID NOT WANT TO TALK TO ANYONE. PT WAS MEDICATED ONCE FOR PAIN AT HIS REQUEST. THE REST OF THE SHIFT HE WAS REDIRECTABLE BACK TO BED. PT WOULD REQUEST PAIN MEDICATION EACH TIME HE WOKE, WHEN STAFF WOULD GET HIM SETTLED INTO BED HE WOULD IMMEDIATELY GO RIGHT TO SLEEP. SPOKE TO DR LEE ABOUT THE PT BP BEING LOW SPIRONOLACTONE WAS HELD THIS MORNING AND PROPRANOLOL THIS AFTERNOON, DR BARONE. WILL PASS ON IN REPORT TO NIGHT RN. PT SISTER EDISON HOGAN IS THE POINT OF CONTACT FOR THIS FAMILY AND ALL QUESTIONS FOR THE RN SHOULD BE DIRECTED TO HER.
[2020-03-08 05:30] LABS: Hematocrit 30.5 % (37.0-53.0); Hemoglobin 10.6 g/dL (13.5-17.5); Mean Corpuscular HGB 34.1 pg (26.0-34.0); Mean Corpuscular HGB Conc 34.8 g/dL (31.5-36.5); Mean Corpuscular Volume 98 fL (80-100); Mean Platelet Volume 12.7 fL (9.1-12.4); Platelet Count 75 K/mm3 (150-400); RDW Coefficient Variation 22.7 % (11.7-14.2); Red Blood Cell Count 3.11 M/mm3 (4.30-5.90); White Blood Cell Count 3.44 K/mm3 (4.00-11.30)
[2020-03-08 05:51] LABS: Alanine Aminotransfer (ALT/SGP 104 U/L (12-78); Albumin, Blood 1.7 g/dL (3.4-5.0); Albumin/Globulin Ratio 0.3 (0.8-1.8); Alk Phos 264 U/L (50-136); Anion Gap 6 mmol/L (6-16); Aspartate Aminotrans (AST/SGOT 118 U/L (12-37); Bilirubin, Total 15.5 mg/dL (0.1-1.0); Blood Urea Nitrogen 8 mg/dL (8-24); Bun/Creatinine Ratio 8.4 (12.0-20.0); CO2, Blood 26 mmol/L (21-32); Chloride, Blood 108 mmol/L (98-108); Creatinine, Blood 0.95 mg/dL (0.60-1.20); Globulin, Blood 4.9 g/dL (2.2-4.0); Glomerular Filtration Rate >60 (60-); Glucose, Blood 103 mg/dL (70-99); Potassium, Blood 3.9 mmol/L (3.5-5.5); Sodium, Blood 140 mmol/L (136-145); Total Protein, Blood 6.6 g/dL (6.4-8.2)
--- NOTE | 2020-03-08 05:54 | NUR ---
CONSTRUCTION PERSON SUMMARY ALERT AND ORIENTED TO PERSON AND PLACE. PT DOES NOT USE CALL LIGHT AND HAD MUTLIPLE ATTEMPTS TO GET OUT OF BED DUE TO URGENCY OF USING THE BSC. ONCE ABLE TO VOID, PT WAS ABLE TO BE REDIRECTED AND WOULD THEN FALL BACK ASLEEP. PAIN WAS MEDICATED AT 0240 AND HAS NOT BEEN NEEDED SINCE. CIWA SCORES HAVE AVERAGED 7 T/O SHIFT. NO S/S OF ACUTE DISTRESS. BED IN LOW POSITION WITH BED ALARM ON AND CALL LIGHT WITHIN REACH. WILL CONTINUE TO MONITOR AND REPORT TO BE GIVEN TO ONCOMING NURSE.
[2020-03-08 05:58] LABS: BAND PERCENT MAN 3 % (0-8); BASOPHILS ABSOLUTE MAN 0.06 K/mm3 (0.00-0.23); BASOPHILS PERCENT MAN 2 % (0-2); EOSINOPHILS ABSOLUTE MAN 0.17 K/mm3 (0.00-0.68); EOSINOPHILS PERCENT MAN 5 % (0-6); LYMPHOCYTES ABSOLUTE MAN 0.75 K/mm3 (0.84-5.20); LYMPHOCYTES PERCENT MAN 22 % (21-46); MONOCYTES ABSOLUTE MAN 0.34 K/mm3 (0.16-1.47); MONOCYTES PERCENT MAN 10 % (4-13); NEUTROPHILS ABSOLUTE MAN 2.09 K/mm3 (1.96-9.15); SEG NEUTROPHILS PERCENT MAN 58 % (41-73); TOTAL CELLS COUNTED 100
--- NOTE | 2020-03-08 17:09 | NUR ---
PT AOX2 AND COOPERATIVE OF CARE. PT IS IMPULSIVE AND HAS BED ALARM IN PLACE. PT TREATED WITH PER EMAR FOR INCREASED CIWAs. PT WAS SEEING THINGS. PT NOW RESTING AT THIS TIME WILL CONTINUE TO MONITOR.
[2020-03-09 00:07] LABS: HBSAG SCREEN Negative (Negative); HEP A AB, IGM Negative (Negative); HEP B CORE AB, IGM Negative (Negative); HEP C VIRUS AB >11.0 (0.0-0.9)
--- NOTE | 2020-03-09 00:29 | NUR ---
0025 PT ASSISTED TO COMMODE AND BACK TO BED. COMPLAINED OF HEARTBURN. PT WAS SEEN DRINKING OUT OF URINAL PER CAMERA MONITOR AWHILE AGO. PT APPEARS VERY DROWSY, WITH SLURRED SPEECH AND FALLING ASLEEP DURING MIDDLE OF CONVERSITION. AT THE SAME TIME, PT REQUESTED PAIN MEDICATION. I DID NOT FEEL COMFORTABLE GIVING PT PAIN MEDICATION. ZOFRAN GIVEN FOR HEARBURN/NAUSEA.
--- NOTE | 2020-03-09 03:54 | NUR ---
HAND DRAWER IN SUMMARY PT HAS BEEN DROWSY ALL NIGHT. FALLS ASLEEP EASILY. PT BP STILL ON THE LOWER END. I TRIED NON-PHARMACOLOGY WAYS OF HELPING PT WITH ABD PAIN SUCH APPLYING WARM BLANKER TO ABD, UNINTERRUPTED REST, RE-DIRECTIONING. PT EDUCATED ON WHY HE DID NOT RECIEVE PAIN MEDICATION TONIGHT. PT HAS GOTTEN UP MULTIPLE TIMES THROUGHOUT THE NIGHT. BED ALARM HAS BEEN ON ALL NIGHT. PT TRANSFERS WITH 1 ASSIST FROM BED TO BSC. WILL CONTINUE TO MONITOR.
--- NOTE | 2020-03-09 09:55 | NUR ---
Pt's sister Jamila came to Palliative Care office, discussed concerns and goals of care. Jamila is Pt's decision maker and would like Pt evaluated for hospice appropriateness. Jamila reports Pt has no intention of alcohol cessation. Pt sitting in wheelchair upon arrival. Pt reports pain in his right upper quadrant, back, and right ankle. Pt is A&OX3. Pt unable to appropriately verbalize reason for hospital stay. Discussed plan of care and goals of care. Educated on options including comfort care. Pt appears intermittently confused and struggles with tracking conversation. Pt does report no intention of alcohol cessation. Spoke with Dr De La Vega and discussed case. Dr De La Vega reports Pt is not appropriate for hospice at this time. Discussed case further with Pt's sister Jamila. Palliative Care will continue to F/U with therapeutic visits.
[2020-03-09 11:05] LABS: BASOPHILS ABSOLUTE AUTO 0.05 K/mm3 (0.00-0.23); BASOPHILS PERCENT AUTO 1 % (0-2); EOSINOPHILS PERCENT AUTO 6 % (0-6); Hematocrit 28.4 % (37.0-53.0); Hemoglobin 9.8 g/dL (13.5-17.5); IMMATURE GRAN ABSOLUTE AUTO 0.08 K/mm3 (0.00-0.10); IMMATURE GRAN PERCENT AUTO 2 % (0-1); LYMPHOCYTES ABSOLUTE AUTO 0.69 K/mm3 (0.84-5.20); LYMPHOCYTES PERCENT AUTO 19 % (21-46); MONOCYTES ABSOLUTE AUTO 0.54 K/mm3 (0.16-1.47); MONOCYTES PERCENT AUTO 15 % (4-13); Mean Corpuscular HGB 34.4 pg (26.0-34.0); Mean Corpuscular HGB Conc 34.5 g/dL (31.5-36.5); Mean Corpuscular Volume 100 fL (80-100); NEUTROPHILS ABSOLUTE AUTO 2.06 K/mm3 (1.96-9.15); NEUTROPHILS PERCENT AUTO 57 % (41-73); Platelet Count 67 K/mm3 (150-400); RDW Coefficient Variation 22.5 % (11.7-14.2); RDW Standard Deviation 79.2 fL (35.1-46.3); Red Blood Cell Count 2.85 M/mm3 (4.30-5.90); White Blood Cell Count 3.62 K/mm3 (4.00-11.30)
[2020-03-09 11:12] LABS: Mean Platelet Volume 13.5 fL (9.1-12.4)
[2020-03-09 11:28] LABS: Alanine Aminotransfer (ALT/SGP 77 U/L (12-78); Albumin, Blood 1.7 g/dL (3.4-5.0); Albumin/Globulin Ratio 0.4 (0.8-1.8); Alk Phos 242 U/L (50-136); Anion Gap 6 mmol/L (6-16); Aspartate Aminotrans (AST/SGOT 77 U/L (12-37); Bilirubin, Total 13.9 mg/dL (0.1-1.0); Blood Urea Nitrogen 11 mg/dL (8-24); Bun/Creatinine Ratio 9.6 (12.0-20.0); CO2, Blood 26 mmol/L (21-32); Calcium, Blood 7.9 mg/dL (8.5-10.1); Chloride, Blood 105 mmol/L (98-108); Creatinine, Blood 1.14 mg/dL (0.60-1.20); Globulin, Blood 4.7 g/dL (2.2-4.0); Glomerular Filtration Rate >60 (60-); Glucose, Blood 81 mg/dL (70-99); Potassium, Blood 3.9 mmol/L (3.5-5.5); Sodium, Blood 137 mmol/L (136-145); Total Protein, Blood 6.4 g/dL (6.4-8.2)
--- NOTE | 2020-03-09 17:00 | NUR ---
PT IS MUCH MORE ALERT TODAY AND EVEN STATED THIS. PT AOX3 AND HAS NO BEEN LETHARGIC. PT HAS BEEN GIVEN ONLY A 5MG OXYCODONE WHEN HE HAS HAD PAIN AND THIS SEEMS TO BE DOING BETTER. PT IS NOT FALLING ASLEEP WHEN SOMEONE IS TALKING TO HIM AND HE HAS BEEN USING HIS CALL LIGHT MORE. PT IS A ONE PERSON ASSIST TO BEDSIDE COMMODE. PT REFUSED STOOL SOFTNER IN THE AM AND THEN REQUESTED THEM LATER IN THE MORNING. THESE WERE GIVEN TO HIM AND WERE EFFECTIVE WITHIN AN HOUR. PT SITTING ON BED AND LOOKING OUT THE WINDOW. WILL CONTINUE TO MONITOR.
[2020-03-10 05:14] LABS: BASOPHILS ABSOLUTE AUTO 0.04 K/mm3 (0.00-0.23); BASOPHILS PERCENT AUTO 1 % (0-2); EOSINOPHILS ABSOLUTE AUTO 0.18 K/mm3 (0.00-0.68); EOSINOPHILS PERCENT AUTO 5 % (0-6); Hematocrit 27.2 % (37.0-53.0); Hemoglobin 9.4 g/dL (13.5-17.5); IMMATURE GRAN ABSOLUTE AUTO 0.07 K/mm3 (0.00-0.10); IMMATURE GRAN PERCENT AUTO 2 % (0-1); LYMPHOCYTES ABSOLUTE AUTO 0.89 K/mm3 (0.84-5.20); LYMPHOCYTES PERCENT AUTO 27 % (21-46); MONOCYTES ABSOLUTE AUTO 0.38 K/mm3 (0.16-1.47); MONOCYTES PERCENT AUTO 11 % (4-13); Mean Corpuscular HGB 34.7 pg (26.0-34.0); Mean Corpuscular HGB Conc 34.6 g/dL (31.5-36.5); Mean Corpuscular Volume 100 fL (80-100); NEUTROPHILS ABSOLUTE AUTO 1.79 K/mm3 (1.96-9.15); NEUTROPHILS PERCENT AUTO 53 % (41-73); Platelet Count 62 K/mm3 (150-400); RDW Standard Deviation 80.5 fL (35.1-46.3); Red Blood Cell Count 2.71 M/mm3 (4.30-5.90); White Blood Cell Count 3.35 K/mm3 (4.00-11.30)
[2020-03-10 05:17] LABS: Mean Platelet Volume 13.7 fL (9.1-12.4)
[2020-03-10 05:36] LABS: Alanine Aminotransfer (ALT/SGP 60 U/L (12-78); Albumin, Blood 2.3 g/dL (3.4-5.0); Albumin/Globulin Ratio 0.5 (0.8-1.8); Alk Phos 201 U/L (50-136); Anion Gap 8 mmol/L (6-16); Aspartate Aminotrans (AST/SGOT 64 U/L (12-37); Bilirubin, Total 12.2 mg/dL (0.1-1.0); Blood Urea Nitrogen 11 mg/dL (8-24); Bun/Creatinine Ratio 11.3 (12.0-20.0); CO2, Blood 24 mmol/L (21-32); Calcium, Blood 7.9 mg/dL (8.5-10.1); Chloride, Blood 103 mmol/L (98-108); Creatinine, Blood 0.97 mg/dL (0.60-1.20); Globulin, Blood 4.2 g/dL (2.2-4.0); Glomerular Filtration Rate >60 (60-); Glucose, Blood 97 mg/dL (70-99); Potassium, Blood 4.1 mmol/L (3.5-5.5); Sodium, Blood 135 mmol/L (136-145); Total Protein, Blood 6.5 g/dL (6.4-8.2)
--- NOTE | 2020-03-10 05:51 | NUR ---
SHIFT SUMMARY- PT. DROWSY EARLY IN THE SHIFT. BECAME MORE ALERT LATER IN THE EVENING. RESTLESS T/O MOST OF THE SHIFT AND IMPULSIVE AT TIMES. C/O ABD AND GENERALIZED PAIN. MEDICATED SEVERAL TIMES DURING THE NIGHT PER EMAR WITH MINIMAL RELIEF. PER PT. REQUEST MOVED BACK AND FORTH IN THE HALLWAY WITH W/C, TOLERATED WELL. PT. BP IMPROVING THIS SHIFT. NO ACUTE CHANGES TO CONDITION. CALL LIGHT WITHIN REACH, SIDE RAILS UP X2, AND BED ALARM ON FOR SAFETY. WILL CONTINUE TO MONITOR.
--- NOTE | 2020-03-10 10:10 | NUR ---
I'M A CNA2 STUDENT ROLE TODAY.
[2020-03-10] MEDS ORDERED: LACT10SY PO (17:34)
[2020-03-10] MEDS ORDERED: PROP10 PO (17:34)
[2020-03-10] MEDS ORDERED: SPIR25 PO (17:35)
--- NOTE | 2020-03-10 18:11 | NUR ---
PATIENT DISCHARGED HOME WITH SISTER. [facility]. ALL LINES DISCONTINUED.
[2020-03-11 14:08] LABS: A/G RATIO 0.6 (0.7-1.7); ALBUMIN 2.1 g/dL (2.9-4.4); ALPHA-1-GLOBULIN 0.2 g/dL (0.0-0.4); ALPHA-2-GLOBULIN 0.3 g/dL (0.4-1.0); BETA GLOBULIN 0.9 g/dL (0.7-1.3); GAMMA GLOBULIN 2.4 g/dL (0.4-1.8); GLOBULIN, TOTAL 3.8 g/dL (2.2-3.9); M-SPIKE Not Observed g/dL (Not Observed); PROTEIN, TOTAL, SERUM 5.9 g/dL (6.0-8.5)
== END 2020-03-10 17:51 | disposition home or self-care (01) | DRG 445 ==
LOC: ER 18:01 → MEDS 22:52 → ER 03-04 00:26 → MEDS 03-04 00:26
PROVIDERS: Emergency Medicine; Family Medicine; Internal Medicine; Student in an Organized Health Care Education/Training Program; ADMIT Internal Medicine
DX: K81.0 Acute cholecystitis (principal); F10.288 Alcohol dependence with other alcohol-induced disorder; K59.00 Constipation, unspecified; K70.11 Alcoholic hepatitis with ascites; Z96.643 Presence of artificial hip joint, bilateral; Z90.12 Acquired absence of left breast and nipple; F17.210 Nicotine dependence, cigarettes, uncomplicated; E80.6 Other disorders of bilirubin metabolism; Z99.3 Dependence on wheelchair; K72.90 Hepatic failure, unspecified without coma; D69.6 Thrombocytopenia, unspecified; D63.8 Anemia in other chronic diseases classified elsewhere; E88.09 Other disorders of plasma-protein metabolism, not elsewhere classified; K76.0 Fatty (change of) liver, not elsewhere classified; R74.0 Nonspecific elevation of levels of transaminase and lactic acid dehydrogenase [LDH]
CPT/HCPCS: 36415; 74018; 74177; 76705; 78226; 80053; 80074; 81001; 83690; 84165; 85025; 85610; 86317; 86704; 86708; 86803; 87070; 87081; 87086; 87340; 96374-59; 99285-25; A9537; J1170; J2060; J2405; J3010; J3430; J7030; P9046; Q9967

== ENCOUNTER 2020-03-14 16:02 | Emergency (ER) | payer OTHER ==
[~2020-03-14] VITALS: Ht 170.2 cm; Wt 86.2 kg
[~2020-03-14 16:02] MED LIST changes: +ARIPIPRAZOLE10 M1 PO; +CLON.1 PO; +LACT10SY PO; +METO25ER PO; +PROP10 PO; +SPIR25 PO
[2020-03-14 16:30] LABS: BASOPHILS ABSOLUTE AUTO 0.03 K/mm3 (0.00-0.23); BASOPHILS PERCENT AUTO 1 % (0-2); EOSINOPHILS ABSOLUTE AUTO 0.21 K/mm3 (0.00-0.68); EOSINOPHILS PERCENT AUTO 6 % (0-6); Hematocrit 30.5 % (37.0-53.0); Hemoglobin 10.1 g/dL (13.5-17.5); IMMATURE GRAN ABSOLUTE AUTO 0.02 K/mm3 (0.00-0.10); IMMATURE GRAN PERCENT AUTO 1 % (0-1); LYMPHOCYTES ABSOLUTE AUTO 0.95 K/mm3 (0.84-5.20); LYMPHOCYTES PERCENT AUTO 29 % (21-46); MONOCYTES ABSOLUTE AUTO 0.46 K/mm3 (0.16-1.47); MONOCYTES PERCENT AUTO 14 % (4-13); Mean Corpuscular HGB 35.6 pg (26.0-34.0); Mean Corpuscular HGB Conc 33.1 g/dL (31.5-36.5); Mean Platelet Volume 12.7 fL (9.1-12.4); NEUTROPHILS ABSOLUTE AUTO 1.59 K/mm3 (1.96-9.15); NEUTROPHILS PERCENT AUTO 49 % (41-73); Platelet Count 107 K/mm3 (150-400); RDW Standard Deviation 86.4 fL (35.1-46.3); Red Blood Cell Count 2.84 M/mm3 (4.30-5.90); White Blood Cell Count 3.26 K/mm3 (4.00-11.30)
[2020-03-14 16:45] LABS: Alanine Aminotransfer (ALT/SGP 39 U/L (12-78); Albumin, Blood 2.2 g/dL (3.4-5.0); Albumin/Globulin Ratio 0.4 (0.8-1.8); Alk Phos 189 U/L (50-136); Anion Gap 6 mmol/L (6-16); Aspartate Aminotrans (AST/SGOT 64 U/L (12-37); Bilirubin, Total 5.6 mg/dL (0.1-1.0); Blood Urea Nitrogen 8 mg/dL (8-24); Bun/Creatinine Ratio 9.8 (12.0-20.0); CO2, Blood 23 mmol/L (21-32); Calcium, Blood 8.3 mg/dL (8.5-10.1); Chloride, Blood 104 mmol/L (98-108); Creatinine, Blood 0.82 mg/dL (0.60-1.20); Globulin, Blood 5.4 g/dL (2.2-4.0); Glomerular Filtration Rate >60 (60-); Glucose, Blood 93 mg/dL (70-99); Potassium, Blood 4.2 mmol/L (3.5-5.5); Sodium, Blood 133 mmol/L (136-145); Total Protein, Blood 7.6 g/dL (6.4-8.2)
[2020-03-14 16:58] LABS: Mean Corpuscular Volume 107 fL (80-100)
[2020-03-14] MEDS ORDERED: Percocet 5-3251 EACH PO (18:49)
[2020-03-14] MEDS ORDERED: PROM25 PO (18:49)
== END 2020-03-14 19:53 | disposition home or self-care (01) ==
LOC: ER 16:02
PROVIDERS: Emergency Medicine
DX: K70.10 Alcoholic hepatitis without ascites (principal); F17.200 Nicotine dependence, unspecified, uncomplicated; Z85.3 Personal history of malignant neoplasm of breast; Z88.0 Allergy status to penicillin; Z88.5 Allergy status to narcotic agent; Z88.6 Allergy status to analgesic agent; Z88.8 Allergy status to other drugs, medicaments and biological substances; Z79.899 Other long term (current) drug therapy; G43.909 Migraine, unspecified, not intractable, without status migrainosus
CPT/HCPCS: 36415; 80053; 83690; 85025; 96374; 96375; 96376; 99283-25; J2270; J2405; J2550

== ENCOUNTER 2020-05-10 21:24 | Inpatient (IN) | payer OTHER ==
[~2020-05-10] VITALS: Ht 170.2 cm; Wt 65.6 kg
[~2020-05-10 21:24] MED LIST changes: +ONDA4 PO; +PROBIOTIC1 EAC7 PO; +Percocet 5-3251 EACH PO
[2020-05-10] MEDS ORDERED: CONSTULOSE10 GM/151 PO (21:40)
[2020-05-10 21:57] LABS: BASOPHILS ABSOLUTE AUTO 0.05 K/mm3 (0.00-0.23); BASOPHILS PERCENT AUTO 1 % (0-2); EOSINOPHILS ABSOLUTE AUTO 0.21 K/mm3 (0.00-0.68); EOSINOPHILS PERCENT AUTO 2 % (0-6); Hematocrit 35.6 % (37.0-53.0); Hemoglobin 11.7 g/dL (13.5-17.5); IMMATURE GRAN ABSOLUTE AUTO 0.03 K/mm3 (0.00-0.10); IMMATURE GRAN PERCENT AUTO 0 % (0-1); LYMPHOCYTES ABSOLUTE AUTO 1.35 K/mm3 (0.84-5.20); LYMPHOCYTES PERCENT AUTO 14 % (21-46); MONOCYTES ABSOLUTE AUTO 0.79 K/mm3 (0.16-1.47); MONOCYTES PERCENT AUTO 8 % (4-13); Mean Corpuscular HGB 32.4 pg (26.0-34.0); Mean Corpuscular HGB Conc 32.9 g/dL (31.5-36.5); Mean Corpuscular Volume 99 fL (80-100); Mean Platelet Volume 11.9 fL (9.1-12.4); NEUTROPHILS PERCENT AUTO 75 % (41-73); Platelet Count 145 K/mm3 (150-400); RDW Coefficient Variation 12.1 % (11.7-14.2); RDW Standard Deviation 44.1 fL (35.1-46.3); Red Blood Cell Count 3.61 M/mm3 (4.30-5.90); White Blood Cell Count 9.73 K/mm3 (4.00-11.30)
[2020-05-10 22:19] LABS: Alanine Aminotransfer (ALT/SGP 42 U/L (12-78); Albumin, Blood 3.2 g/dL (3.4-5.0); Albumin/Globulin Ratio 0.6 (0.8-1.8); Alk Phos 134 U/L (50-136); Anion Gap 7 mmol/L (6-16); Aspartate Aminotrans (AST/SGOT 59 U/L (12-37); Bilirubin, Total 0.3 mg/dL (0.1-1.0); Blood Urea Nitrogen 12 mg/dL (8-24); Bun/Creatinine Ratio 16.2 (12.0-20.0); CO2, Blood 24 mmol/L (21-32); Calcium, Blood 8.6 mg/dL (8.5-10.1); Chloride, Blood 108 mmol/L (98-108); Creatinine, Blood 0.74 mg/dL (0.60-1.20); Globulin, Blood 5.2 g/dL (2.2-4.0); Glomerular Filtration Rate >60 (60-); Glucose, Blood 122 mg/dL (70-99); Potassium, Blood 3.7 mmol/L (3.5-5.5); Sodium, Blood 139 mmol/L (136-145); Total Protein, Blood 8.4 g/dL (6.4-8.2)
[2020-05-10 22:52] LABS: Ethanol (Alcohol), Blood, Med 293 mg/dL
[2020-05-11] MEDS ORDERED: OXYC5 PO (01:45)
[2020-05-11] MEDS ORDERED: ONDA4ODT MM (01:46)
[2020-05-11 02:34] LABS: U Amphetamine Screen DETECTED; U Barbituate Screen Not Detected; U Benzodiazapine Screen DETECTED; U Buprenorphine Screen Not Detected; U Cannabinoids Screen Not Detected; U Cocaine Screen Not Detected; U Methadone Screen Not Detected; U Methamphetamine Screen DETECTED; U Opiates Screen Not Detected; U Oxycodone Screen Not Detected; U Phencyclidine Screen Not Detected; U Propoxyphene Screen Not Detected
--- NOTE | 2020-05-11 05:58 | NUR ---
SHIFT SUMMARY PT WAS A NEW ADMIT DURING THE NIGHT, ARRIVING ON THE FLOOR AT 0030. HE WAS ADMITTED FOR A YEE ABSCESS THAT WAS I&D'D IN THE ED EARLIER YESTERDAY. PICTURES IN THE CHART. PT IS A&O X 4, A 1PA TO THE BSC DUE TO A HX OF HIPS "OUT OF PLACE". PT WAS MEDICATED FOR YEE AND ABD PAIN TWICE WITH PRN IV FENTANYL, AND ONCE FOR NAUSEA WITH PRN ZOFRAN THOUGH HE WAS ABLE TO TOLERATE PO INTAKE DURING THAT TIME. NO COMPLAINTS OF SOB. PT DOES HAVE A HX OF IV DRUG USE, AND TOX SCREEN WAS POSITIVE FOR METH, AMPHETAMINES, AND BENZODIAZEPINES. TELE SHOWED ST IN THE 100-110S. VITAL SIGNS OTHERWISE STABLE. NO ACUTE CHANGES IN PT CONDITION NOTED SINCE ADMISSION. WILL CONTINUE TO MONITOR AND TREAT PER EMAR UNTIL HAND OFF TO DAY SHIFT RN.
[2020-05-11 10:34] LABS: BASOPHILS ABSOLUTE AUTO 0.03 K/mm3 (0.00-0.23); BASOPHILS PERCENT AUTO 1 % (0-2); EOSINOPHILS ABSOLUTE AUTO 0.19 K/mm3 (0.00-0.68); EOSINOPHILS PERCENT AUTO 3 % (0-6); Hematocrit 31.7 % (37.0-53.0); Hemoglobin 10.2 g/dL (13.5-17.5); IMMATURE GRAN ABSOLUTE AUTO 0.01 K/mm3 (0.00-0.10); IMMATURE GRAN PERCENT AUTO 0 % (0-1); LYMPHOCYTES ABSOLUTE AUTO 0.59 K/mm3 (0.84-5.20); LYMPHOCYTES PERCENT AUTO 11 % (21-46); MONOCYTES ABSOLUTE AUTO 0.46 K/mm3 (0.16-1.47); MONOCYTES PERCENT AUTO 8 % (4-13); Mean Corpuscular HGB 32.4 pg (26.0-34.0); Mean Corpuscular HGB Conc 32.2 g/dL (31.5-36.5); Mean Corpuscular Volume 101 fL (80-100); NEUTROPHILS ABSOLUTE AUTO 4.23 K/mm3 (1.96-9.15); NEUTROPHILS PERCENT AUTO 77 % (41-73); Platelet Count 105 K/mm3 (150-400); RDW Coefficient Variation 12.2 % (11.7-14.2); RDW Standard Deviation 44.8 fL (35.1-46.3); Red Blood Cell Count 3.15 M/mm3 (4.30-5.90); White Blood Cell Count 5.51 K/mm3 (4.00-11.30)
[2020-05-11 11:06] LABS: Alanine Aminotransfer (ALT/SGP 40 U/L (12-78); Albumin, Blood 2.8 g/dL (3.4-5.0); Albumin/Globulin Ratio 0.6 (0.8-1.8); Alk Phos 127 U/L (50-136); Anion Gap 6 mmol/L (6-16); Aspartate Aminotrans (AST/SGOT 64 U/L (12-37); Bilirubin, Total 0.4 mg/dL (0.1-1.0); Blood Urea Nitrogen 9 mg/dL (8-24); Bun/Creatinine Ratio 13.8 (12.0-20.0); CO2, Blood 23 mmol/L (21-32); Calcium, Blood 7.7 mg/dL (8.5-10.1); Chloride, Blood 110 mmol/L (98-108); Creatinine, Blood 0.65 mg/dL (0.60-1.20); Globulin, Blood 4.6 g/dL (2.2-4.0); Glomerular Filtration Rate >60 (60-); Glucose, Blood 115 mg/dL (70-99); Potassium, Blood 3.9 mmol/L (3.5-5.5); Sodium, Blood 139 mmol/L (136-145); Total Protein, Blood 7.4 g/dL (6.4-8.2)
[2020-05-11 16:34] LABS: Vancomycin, Trough 14.9 ug/mL (5.0-10.0)
--- NOTE | 2020-05-11 17:33 | NUR ---
SHIFT SUMMARY PT ALERT AND ORIENTED THROUGHOUT THIS SHIFT. PT 1 PERSON ASSIST TO THE STANDBY COMODE. PT MEDICATED FOR PAIN THROUGHOUT THIS SHIFT. WOUND ON LEFT ARM BANDAGE CHANGED THIS SHIFT. CULTURE SENT TO LAB FROM WOUND THIS SHIFT. PT NAPPED THIS AFTERNOON. PT SITTING UP IN BED WATCHING TELEVISION.
--- NOTE | 2020-05-11 18:12 | NUR ---
Per admit trigger, I met with Johnny to offer encouragement and vocational guidance counselor. He said he was too sleepy and declined visit. He did accept prayer. I try again tomorrow.
--- NOTE | 2020-05-12 03:32 | NUR ---
MOTOR SETTER SUMMARY PT ORIENTED X4. APPEARS SLEEPY. MEDICATED FOR PAIN PER EMAR. CIWAS STABLE. PT HAD A BEER WITH LUNCH TODAY PER AM REPORT. PT REPORTED HE FELT LIKE HE WAS HAVING AN "ALLERGIC REACTION" TO MUSHROOMS I GOT ONTO SHIFT. HE SAID HE HAD MUSHROOMS FOR DINNER. HE SAID HIS SKIN WAS ITCHY. NO RASHES WERE PRESENT, THROAT DOESN'T APPEAR SWOLLEN, NO SOB NOTED, VSS. PT EDUCATED ITCHYNESS IS ONE OF SIGNS OF ALCHOHOL WITHDRAWL SYOMPTOM. SLEPT WELL TONIGHT. SR IN THE 70'S PER TELE MONITOR. VSS. NO ACUTE CHANGES.
[2020-05-12 05:40] LABS: BASOPHILS ABSOLUTE AUTO 0.02 K/mm3 (0.00-0.23); BASOPHILS PERCENT AUTO 1 % (0-2); EOSINOPHILS ABSOLUTE AUTO 0.18 K/mm3 (0.00-0.68); EOSINOPHILS PERCENT AUTO 6 % (0-6); Hematocrit 30.7 % (37.0-53.0); IMMATURE GRAN ABSOLUTE AUTO 0.01 K/mm3 (0.00-0.10); IMMATURE GRAN PERCENT AUTO 0 % (0-1); LYMPHOCYTES PERCENT AUTO 14 % (21-46); MONOCYTES ABSOLUTE AUTO 0.28 K/mm3 (0.16-1.47); MONOCYTES PERCENT AUTO 10 % (4-13); Mean Corpuscular HGB 33.1 pg (26.0-34.0); Mean Corpuscular HGB Conc 32.6 g/dL (31.5-36.5); Mean Corpuscular Volume 102 fL (80-100); NEUTROPHILS ABSOLUTE AUTO 1.95 K/mm3 (1.96-9.15); NEUTROPHILS PERCENT AUTO 69 % (41-73); Platelet Count 88 K/mm3 (150-400); RDW Coefficient Variation 12.2 % (11.7-14.2); RDW Standard Deviation 45.6 fL (35.1-46.3); Red Blood Cell Count 3.02 M/mm3 (4.30-5.90); White Blood Cell Count 2.84 K/mm3 (4.00-11.30)
[2020-05-12 06:03] LABS: Anion Gap 6 mmol/L (6-16); Blood Urea Nitrogen 8 mg/dL (8-24); Bun/Creatinine Ratio 12.3 (12.0-20.0); CO2, Blood 23 mmol/L (21-32); Calcium, Blood 8.5 mg/dL (8.5-10.1); Chloride, Blood 109 mmol/L (98-108); Creatinine, Blood 0.65 mg/dL (0.60-1.20); Glomerular Filtration Rate >60 (60-); Glucose, Blood 97 mg/dL (70-99); Potassium, Blood 4.2 mmol/L (3.5-5.5); Sodium, Blood 138 mmol/L (136-145)
--- NOTE | 2020-05-12 18:09 | NUR ---
PT HAS BEEN AOX4 AND COOPERATIVE OF CARE. PT APPEARS TO BE DOING WELL FOR HIS BASELINE. CONTINUES TO HAVE VERY MILD TREMORS, AND SOME NAUSEA TREATED PER EMAR. PT SHOWED NO DISTRESS AND HAS BEEN A STAND BY TRANSFER TO BEDSIDE COMMODE. PT CALL APPROPRIATELY AND IS PLEASANT TO CARE FOR. WILL CONTINUE TO MONITOR.
[2020-05-12 20:39] LABS: Vancomycin, Trough 12.4 ug/mL (5.0-10.0)
--- NOTE | 2020-05-13 04:18 | NUR ---
MULTIPLE EFFECT EVAPORATOR OPERATOR SUMMARY PT A/O X4. DID NOT SLEEP MUCH DUE TO CONSTANT BM'S. PT TOOK SCHEDULED LACTULOSE AND HAD OVER 10 BM'S ON TONIGHT'S SHIFT. FROM THE START OF MY SHIFT PT'S BM WENT FROM PASTY DARK GREEN/BROWN TO CLEAR LIQUID WITH SCATTERED PIECES. MEDICATED FOR PAIN PER EMAR. ZOFRAN GIVEN FOR NAUSEA. CIWA SCORE STABLE OF 3 TONIGHT. PT HAD BEER WITH LUNCH DURING AM SHIFT. VSS.
[2020-05-13 05:12] LABS: BASOPHILS ABSOLUTE AUTO 0.02 K/mm3 (0.00-0.23); BASOPHILS PERCENT AUTO 1 % (0-2); EOSINOPHILS ABSOLUTE AUTO 0.25 K/mm3 (0.00-0.68); EOSINOPHILS PERCENT AUTO 9 % (0-6); Hematocrit 32.8 % (37.0-53.0); Hemoglobin 10.6 g/dL (13.5-17.5); IMMATURE GRAN ABSOLUTE AUTO 0.01 K/mm3 (0.00-0.10); IMMATURE GRAN PERCENT AUTO 0 % (0-1); LYMPHOCYTES ABSOLUTE AUTO 0.56 K/mm3 (0.84-5.20); LYMPHOCYTES PERCENT AUTO 20 % (21-46); MONOCYTES ABSOLUTE AUTO 0.29 K/mm3 (0.16-1.47); MONOCYTES PERCENT AUTO 10 % (4-13); Mean Corpuscular HGB 32.7 pg (26.0-34.0); Mean Corpuscular HGB Conc 32.3 g/dL (31.5-36.5); Mean Corpuscular Volume 101 fL (80-100); Mean Platelet Volume 11.8 fL (9.1-12.4); NEUTROPHILS ABSOLUTE AUTO 1.67 K/mm3 (1.96-9.15); NEUTROPHILS PERCENT AUTO 60 % (41-73); Platelet Count 85 K/mm3 (150-400); RDW Standard Deviation 44.7 fL (35.1-46.3); Red Blood Cell Count 3.24 M/mm3 (4.30-5.90)
[2020-05-13] MEDS ORDERED: PROBIOTIC & AC1 EACH PO (09:57)
[2020-05-13] MEDS ORDERED: CEPH500 PO (09:58)
[2020-05-13] MEDS ORDERED: BACTRIM DS TAB1 EAC2 PO (09:59)
--- NOTE | 2020-05-13 15:18 | NUR ---
SHIFT SUMMARY PT RESTING QUIETLY AT START OF SHIFT. PER REPORT AND LATER PT, HE DIDN'T GET MUCH SLEEP LAST NIGHT D/T MULTIPLE BM'S FROM LACTULOSE. ADMITTED FOR LUE ABSCESS; PT REPORTED SPIDER BITE. HX OF ETOH ABUSE; PT REPORTED THAT HE WAS DRINKING AT LEAST 6-8 40 OZ CANS OF BEER/DAY. PT REPORTED THAT HE IS CUTTING BACK. PT MEDICATED PER EMAR FOR CHRONIC PAIN ISSUES; ABD AND BACK. DR LEE IN TO SEE PT THIS AM. D/C ORDERS PLACED. IV ABX ADMIN PRIOR TO D/C. PACKING TO LUE WOUND REMOVED PER ORDERS, PRIOR TO D/C. CLEAN DRSG APPLIED PER ORDERS. D/C INSTRUCTIONS REVIEWED WITH PT. VERBALIZED UNDERSTANDING. IV SITE D/C'D WNL AFTER ABX COMPLETE. PT ASSISTED OUT TO FAMILY CAR VIA W/C AND ESCORT SERVICES.
[2020-06-03] MEDS ORDERED: ONDA4ODT MM (21:51)
== END 2020-05-13 12:13 | disposition home or self-care (01) | DRG 897 ==
LOC: ER 21:24 → MEDS 23:09
PROVIDERS: Emergency Medicine; Internal Medicine; ADMIT Internal Medicine
DX: F10.229 Alcohol dependence with intoxication, unspecified (principal); L02.414 Cutaneous abscess of left upper limb; E87.2 Acidosis; E72.20 Disorder of urea cycle metabolism, unspecified; D61.818 Other pancytopenia; L03.114 Cellulitis of left upper limb; Z20.828 Contact with and (suspected) exposure to other viral communicable diseases; K70.30 Alcoholic cirrhosis of liver without ascites; Y90.8 Blood alcohol level of 240 mg/100 ml or more; K70.10 Alcoholic hepatitis without ascites; F17.210 Nicotine dependence, cigarettes, uncomplicated
CPT/HCPCS: 36415; 80048; 80053; 80202; 82140; 83605; 83690; 85025; 87040; 87070; 87075; 87205; 96361; 96374; 99284-25; G0480; J0692; J1650; J2060; J2405; J3010; J3370; J3411; J3475; J7030; J7042

== ENCOUNTER 2021-01-23 18:20 | Emergency (ER) | payer OTHER ==
[~2021-01-23 18:20] MED LIST changes: +BACTRIM DS TAB1 EAC2 PO; +CONSTULOSE10 GM/151 PO; +PROBIOTIC & AC1 EACH PO
== END 2021-01-23 19:07 | disposition left against medical advice (07) ==
LOC: ER 18:20
DX: Z53.21 Procedure and treatment not carried out due to patient leaving prior to being seen by health care provider (principal)

== ENCOUNTER 2021-04-07 16:31 | Emergency (ER) | payer OTHER ==
[~2021-04-07] VITALS: Ht 172.7 cm; Wt 70.3 kg
[2021-04-07] MEDS ORDERED: NARCAN4 M1 (18:04)
== END 2021-04-07 19:24 | disposition home or self-care (01) ==
LOC: ER 16:31
DX: F11.10 Opioid abuse, uncomplicated (principal); Z88.6 Allergy status to analgesic agent; Z88.8 Allergy status to other drugs, medicaments and biological substances; Z88.0 Allergy status to penicillin; Z88.5 Allergy status to narcotic agent; Z79.899 Other long term (current) drug therapy
CPT/HCPCS: 93005; 93010; 99284-25

== ENCOUNTER 2021-11-11 10:59 | Emergency (ER) | payer OTHER ==
[~2021-11-11] VITALS: Ht 170.2 cm; Wt 69.8 kg
[~2021-11-11 10:59] MED LIST changes: +NARCAN4 M1
[2021-11-11 12:30] LABS: BASOPHILS ABSOLUTE AUTO 0.05 K/mm3 (0.00-0.23); BASOPHILS PERCENT AUTO 1 % (0-2); EOSINOPHILS ABSOLUTE AUTO 0.44 K/mm3 (0.00-0.68); EOSINOPHILS PERCENT AUTO 8 % (0-6); Hematocrit 42.8 % (37.0-53.0); Hemoglobin 14.5 g/dL (13.5-17.5); IMMATURE GRAN ABSOLUTE AUTO 0.02 K/mm3 (0.00-0.10); IMMATURE GRAN PERCENT AUTO 0 % (0-1); LYMPHOCYTES ABSOLUTE AUTO 1.43 K/mm3 (0.84-5.20); LYMPHOCYTES PERCENT AUTO 26 % (21-46); MONOCYTES ABSOLUTE AUTO 0.74 K/mm3 (0.16-1.47); MONOCYTES PERCENT AUTO 13 % (4-13); Mean Corpuscular HGB 32.5 pg (26.0-34.0); Mean Corpuscular HGB Conc 33.9 g/dL (31.5-36.5); Mean Corpuscular Volume 96 fL (80-100); Mean Platelet Volume 11.5 fL (9.1-12.4); NEUTROPHILS ABSOLUTE AUTO 2.86 K/mm3 (1.96-9.15); NEUTROPHILS PERCENT AUTO 52 % (41-73); Platelet Count 215 K/mm3 (150-400); RDW Coefficient Variation 13.3 % (11.7-14.2); RDW Standard Deviation 47.4 fL (35.1-46.3); Red Blood Cell Count 4.46 M/mm3 (4.30-5.90); White Blood Cell Count 5.54 K/mm3 (4.00-11.30)
[2021-11-11 12:56] LABS: Alanine Aminotransfer (ALT/SGP 34 U/L (12-78); Albumin, Blood 3.1 g/dL (3.4-5.0); Albumin/Globulin Ratio 0.5 (0.8-1.8); Alk Phos 110 U/L (50-136); Anion Gap 4 mmol/L (6-16); Aspartate Aminotrans (AST/SGOT 53 U/L (12-37); Bilirubin, Total 0.3 mg/dL (0.1-1.0); Blood Urea Nitrogen 10 mg/dL (8-24); Bun/Creatinine Ratio 12.3 (12.0-20.0); CO2, Blood 25 mmol/L (21-32); Calcium, Blood 8.9 mg/dL (8.5-10.1); Chloride, Blood 107 mmol/L (98-108); Creatinine, Blood 0.81 mg/dL (0.60-1.20); Globulin, Blood 5.7 g/dL (2.2-4.0); Glomerular Filtration Rate >60 (60-); Glucose, Blood 106 mg/dL (70-99); Potassium, Blood 5.2 mmol/L (3.5-5.5); Sodium, Blood 136 mmol/L (136-145); Total Protein, Blood 8.8 g/dL (6.4-8.2)
[2021-11-11] MEDS ORDERED: ALMACONE SUSPE355 ML PO (15:46)
[2021-11-11] MEDS ORDERED: FAMO20 PO (15:46)
== END 2021-11-11 16:16 | disposition home or self-care (01) ==
LOC: ER 10:59
PROVIDERS: Physician Assistant
DX: K29.70 Gastritis, unspecified, without bleeding (principal); K52.9 Noninfective gastroenteritis and colitis, unspecified; F10.20 Alcohol dependence, uncomplicated; K74.60 Unspecified cirrhosis of liver; G43.909 Migraine, unspecified, not intractable, without status migrainosus; F17.210 Nicotine dependence, cigarettes, uncomplicated; Z88.0 Allergy status to penicillin; Z88.6 Allergy status to analgesic agent; Z88.5 Allergy status to narcotic agent; Z88.8 Allergy status to other drugs, medicaments and biological substances; Z79.899 Other long term (current) drug therapy
CPT/HCPCS: 74177; 80053; 83690; 85025; 93005; 93010; 96374; 99284-25; A9270; Q9967

== ENCOUNTER 2022-08-06 23:11 | Emergency (ER) | payer OTHER ==
[~2022-08-06] VITALS: Ht 162.6 cm; Wt 70.3 kg
[~2022-08-06 23:11] MED LIST changes: +ALMACONE SUSPE355 ML PO; +FAMO20 PO
[2022-08-06 23:59] LABS: BASOPHILS ABSOLUTE AUTO 0.07 K/mm3 (0.00-0.23); BASOPHILS PERCENT AUTO 1 % (0-2); EOSINOPHILS ABSOLUTE AUTO 0.61 K/mm3 (0.00-0.68); EOSINOPHILS PERCENT AUTO 10 % (0-6); Hematocrit 40.7 % (37.0-53.0); Hemoglobin 13.7 g/dL (13.5-17.5); IMMATURE GRAN ABSOLUTE AUTO 0.02 K/mm3 (0.00-0.10); IMMATURE GRAN PERCENT AUTO 0 % (0-1); LYMPHOCYTES ABSOLUTE AUTO 1.33 K/mm3 (0.84-5.20); LYMPHOCYTES PERCENT AUTO 23 % (21-46); MONOCYTES ABSOLUTE AUTO 0.41 K/mm3 (0.16-1.47); MONOCYTES PERCENT AUTO 7 % (4-13); Mean Corpuscular HGB 31.9 pg (26.0-34.0); Mean Corpuscular HGB Conc 33.7 g/dL (31.5-36.5); Mean Corpuscular Volume 95 fL (80-100); Mean Platelet Volume 11.9 fL (9.1-12.4); NEUTROPHILS ABSOLUTE AUTO 3.47 K/mm3 (1.96-9.15); NEUTROPHILS PERCENT AUTO 59 % (41-73); Platelet Count 146 K/mm3 (150-400); RDW Coefficient Variation 12.5 % (11.7-14.2); RDW Standard Deviation 43.7 fL (35.1-46.3); Red Blood Cell Count 4.29 M/mm3 (4.30-5.90); White Blood Cell Count 5.91 K/mm3 (4.00-11.30)
[2022-08-07 00:31] LABS: Albumin, Blood 3.5 g/dL (3.4-5.0); Albumin/Globulin Ratio 0.7 (0.8-1.8); Bilirubin, Total 0.3 mg/dL (0.1-1.0); Bun/Creatinine Ratio 16.7 (12.0-20.0); Calcium, Blood 9.3 mg/dL (8.5-10.1); Creatinine, Blood 0.9 mg/dL (0.60-1.20); Globulin, Blood 4.7 g/dL (2.2-4.0); Potassium, Blood 4.4 mmol/L (3.5-5.5); Total Protein, Blood 8.2 g/dL (6.4-8.2)
== END 2022-08-07 03:11 | disposition home or self-care (01) ==
LOC: ER 23:11
PROVIDERS: Student in an Organized Health Care Education/Training Program
DX: R06.00 Dyspnea, unspecified (principal); F17.210 Nicotine dependence, cigarettes, uncomplicated; Z88.0 Allergy status to penicillin; Z88.5 Allergy status to narcotic agent; Z88.6 Allergy status to analgesic agent; Z79.899 Other long term (current) drug therapy; Z85.3 Personal history of malignant neoplasm of breast; Z86.14 Personal history of Methicillin resistant Staphylococcus aureus infection
CPT/HCPCS: 71046; 80053; 83880; 84484; 85025; 93005; 93010

== ENCOUNTER 2022-08-12 17:52 | Emergency (ER) | payer OTHER ==
[~2022-08-12] VITALS: Ht 162.6 cm; Wt 73.5 kg
== END 2022-08-12 19:43 | disposition home or self-care (01) ==
LOC: ER 17:52
DX: M25.561 Pain in right knee (principal); X50.1XXA Overexertion from prolonged static or awkward postures, initial encounter; F17.210 Nicotine dependence, cigarettes, uncomplicated; Z88.6 Allergy status to analgesic agent; Z88.5 Allergy status to narcotic agent; Z88.0 Allergy status to penicillin; Z88.8 Allergy status to other drugs, medicaments and biological substances; Z79.899 Other long term (current) drug therapy
CPT/HCPCS: 73562-RT; A9270; J1885

== ENCOUNTER 2022-09-19 16:59 | Emergency (ER) | payer OTHER ==
[~2022-09-19] VITALS: Ht 170.2 cm; Wt 68.0 kg
[2022-09-19 17:53] LABS: Source, Urine Condom Cath
[2022-09-19 17:56] LABS: Appearance, Urine Clear (Clear); Bilirubin, Urine Neg (Neg); Blood, Urine Neg (Neg); Color, Urine Yellow (P-Yellow); Glucose Qualitative, Urine Neg (Neg); Ketones, Urine Neg (Neg); Leukocyte Esterase, Urine Neg (Neg); Nitrite, Urine Neg (Neg); Protein, Urine Neg (Neg); Urobilinogen, Urine NORM (Normal)
== END 2022-09-19 17:59 | disposition home or self-care (01) ==
LOC: ER 16:59
PROVIDERS: Physician Assistant
DX: R30.0 Dysuria (principal); F17.210 Nicotine dependence, cigarettes, uncomplicated; Z88.0 Allergy status to penicillin; Z88.5 Allergy status to narcotic agent; Z88.6 Allergy status to analgesic agent; Z79.899 Other long term (current) drug therapy
CPT/HCPCS: 51798; 81003

== ENCOUNTER 2022-11-13 13:58 | Emergency (ER) | payer OTHER ==
[~2022-11-13] VITALS: Ht 157.5 cm; Wt 69.0 kg
[2022-11-13] MEDS ORDERED: Ultram50 MG PO (14:51)
== END 2022-11-13 15:15 | disposition home or self-care (01) ==
LOC: ER 13:58
DX: M25.561 Pain in right knee (principal); F17.210 Nicotine dependence, cigarettes, uncomplicated; Z88.0 Allergy status to penicillin; Z88.5 Allergy status to narcotic agent; Z88.8 Allergy status to other drugs, medicaments and biological substances; Z79.899 Other long term (current) drug therapy
CPT/HCPCS: 99282; A9270

== ENCOUNTER 2022-12-11 13:02 | Emergency (ER) | payer OTHER ==
[~2022-12-11] VITALS: Ht 160 cm; Wt 70.3 kg
[~2022-12-11 13:02] MED LIST changes: +PSEU120ER; +SENNA LAXATIVE8.6 MG
[2022-12-11] MEDS ORDERED: CYCL10 PO (15:36)
== END 2022-12-11 16:20 | disposition home or self-care (01) ==
LOC: ER 13:02
DX: S39.012A Strain of muscle, fascia and tendon of lower back, initial encounter (principal); X58.XXXA Exposure to other specified factors, initial encounter; Z88.8 Allergy status to other drugs, medicaments and biological substances; Z88.6 Allergy status to analgesic agent; Z88.0 Allergy status to penicillin; Z88.5 Allergy status to narcotic agent; Z79.899 Other long term (current) drug therapy; G43.909 Migraine, unspecified, not intractable, without status migrainosus; Z85.3 Personal history of malignant neoplasm of breast; F17.210 Nicotine dependence, cigarettes, uncomplicated
CPT/HCPCS: 99283; A9270

== ENCOUNTER 2023-01-11 05:14 | Emergency (ER) | payer OTHER ==
[~2023-01-11] VITALS: Ht 162.6 cm; Wt 65.8 kg
[~2023-01-11 05:14] MED LIST changes: +CYCL10 PO
[2023-01-11] MEDS ORDERED: ALBU90OI INH (05:54)
[2023-01-11] MEDS ORDERED: BENZ100A PO (05:54)
[2023-01-11] MEDS ORDERED: FURO20 PO (05:57)
== END 2023-01-11 06:29 | disposition home or self-care (01) ==
LOC: ER 05:14
DX: R05.9 Cough, unspecified (principal); R09.81 Nasal congestion; G43.909 Migraine, unspecified, not intractable, without status migrainosus; F20.9 Schizophrenia, unspecified; F17.210 Nicotine dependence, cigarettes, uncomplicated; Z88.8 Allergy status to other drugs, medicaments and biological substances; Z88.6 Allergy status to analgesic agent; Z88.0 Allergy status to penicillin; Z88.5 Allergy status to narcotic agent; Z79.899 Other long term (current) drug therapy
CPT/HCPCS: 71046; 99283-25

== ENCOUNTER 2023-02-21 10:55 | Emergency (ER) | payer OTHER ==
[~2023-02-21] VITALS: Ht 170.2 cm; Wt 76.2 kg
[~2023-02-21 10:55] MED LIST changes: +BENZ100A PO; +FURO20 PO
[2023-02-21 12:41] LABS: Source, Urine Clean Catch
[2023-02-21 12:50] LABS: Appearance, Urine Clear (Clear); Bilirubin, Urine Neg (Neg); Blood, Urine 1+ (Neg); Color, Urine Yellow (P-Yellow); Glucose Qualitative, Urine Neg (Neg); Ketones, Urine Neg (Neg); Leukocyte Esterase, Urine Neg (Neg); Nitrite, Urine Neg (Neg); Protein, Urine Neg (Neg); Specific Gravity, Urine 1.015 (1.003-1.022); Urobilinogen, Urine NORM (Normal)
[2023-02-21 12:51] LABS: BASOPHILS ABSOLUTE AUTO 0.07 K/mm3 (0.00-0.23); BASOPHILS PERCENT AUTO 1 % (0-2); EOSINOPHILS PERCENT AUTO 7 % (0-6); Hematocrit 45.7 % (37.0-53.0); Hemoglobin 15.1 g/dL (13.5-17.5); IMMATURE GRAN ABSOLUTE AUTO 0.01 K/mm3 (0.00-0.10); IMMATURE GRAN PERCENT AUTO 0 % (0-1); LYMPHOCYTES ABSOLUTE AUTO 1.28 K/mm3 (0.84-5.20); LYMPHOCYTES PERCENT AUTO 19 % (21-46); MONOCYTES ABSOLUTE AUTO 0.44 K/mm3 (0.16-1.47); MONOCYTES PERCENT AUTO 6 % (4-13); Mean Corpuscular Volume 94 fL (80-100); NEUTROPHILS ABSOLUTE AUTO 4.55 K/mm3 (1.96-9.15); NEUTROPHILS PERCENT AUTO 67 % (41-73); Platelet Count 180 K/mm3 (150-400); RDW Coefficient Variation 13.2 % (11.7-14.2); RDW Standard Deviation 45.4 fL (35.1-46.3); Red Blood Cell Count 4.87 M/mm3 (4.30-5.90); White Blood Cell Count 6.85 K/mm3 (4.00-11.30)
[2023-02-21 13:08] LABS: Albumin, Blood 3.7 g/dL (3.4-5.0); Albumin/Globulin Ratio 0.7 (0.8-1.8); Bilirubin, Total 0.6 mg/dL (0.1-1.0); Bun/Creatinine Ratio 16.8 (12.0-20.0); Calcium, Blood 9.1 mg/dL (8.5-10.1); Creatinine, Blood 0.83 mg/dL (0.60-1.20); Globulin, Blood 5.2 g/dL (2.2-4.0); Potassium, Blood 4.4 mmol/L (3.5-5.5); Total Protein, Blood 8.9 g/dL (6.4-8.2)
[2023-02-21 13:12] LABS: Bacteria Rare /hpf; Red Blood Cells, Urine 0-2 /hpf (0-2); Squamous Epithelial Cells Rare /hpf (Few); White Blood Cells, Urine Not Seen /hpf (0-5)
[2023-02-21 16:45] VITALS: BP 164/99
[2023-02-21] MEDS ORDERED: CATAPRES0.1 MG PO (18:43)
[2023-02-21] MEDS ORDERED: OXYC5 (18:43)
== END 2023-02-21 18:45 | disposition home or self-care (01) ==
LOC: ER 10:55
PROVIDERS: Physician Assistant
DX: R10.11 Right upper quadrant pain (principal); R10.12 Left upper quadrant pain; R10.30 Lower abdominal pain, unspecified; Z88.8 Allergy status to other drugs, medicaments and biological substances; Z88.6 Allergy status to analgesic agent; Z88.0 Allergy status to penicillin; Z79.899 Other long term (current) drug therapy; G43.909 Migraine, unspecified, not intractable, without status migrainosus; F17.210 Nicotine dependence, cigarettes, uncomplicated
CPT/HCPCS: 74177; 80053; 81001; 83690; 85025; 96374-59; 99284-25; A9270; J1885; Q9967

== ENCOUNTER 2023-03-04 01:27 | Day surgery (SDC) | payer OTHER ==
[~2023-03-04 01:27] MED LIST changes: +CATAPRES0.1 MG PO
== END 2023-03-04 22:59 | disposition home or self-care (01) ==
LOC: WOUND 01:27
DX: I87.2 Venous insufficiency (chronic) (peripheral) (principal); I10 Essential (primary) hypertension
CPT/HCPCS: G0463

== ENCOUNTER 2024-04-16 17:32 | Emergency (ER) | payer OTHER ==
[~2024-04-16] VITALS: Ht 165.1 cm; Wt 73.5 kg
[2024-04-16] MEDS ORDERED: NS 1,000 ML IV SCH (18:00)
[2024-04-16] MEDS ORDERED: Droperidol 5 mg/2 ml Vial IV ONE (18:05)
[2024-04-16 18:27] LABS: BASOPHILS ABSOLUTE AUTO 0.08 K/mm3 (0.00-0.23); BASOPHILS PERCENT AUTO 1 % (0-2); EOSINOPHILS ABSOLUTE AUTO 0.27 K/mm3 (0.00-0.68); EOSINOPHILS PERCENT AUTO 4 % (0-6); Hematocrit 42.4 % (37.0-53.0); Hemoglobin 14.4 g/dL (13.5-17.5); IMMATURE GRAN ABSOLUTE AUTO 0.03 K/mm3 (0.00-0.10); IMMATURE GRAN PERCENT AUTO 0 % (0-1); LYMPHOCYTES ABSOLUTE AUTO 1.69 K/mm3 (0.84-5.20); LYMPHOCYTES PERCENT AUTO 24 % (21-46); MONOCYTES PERCENT AUTO 6 % (4-13); Mean Corpuscular HGB 31.2 pg (26.0-34.0); Mean Corpuscular Volume 92 fL (80-100); Mean Platelet Volume 12.4 fL (9.1-12.4); NEUTROPHILS ABSOLUTE AUTO 4.61 K/mm3 (1.96-9.15); NEUTROPHILS PERCENT AUTO 65 % (41-73); Platelet Count 199 K/mm3 (150-400); RDW Coefficient Variation 12.8 % (11.7-14.2); RDW Standard Deviation 43.2 fL (35.1-46.3); Red Blood Cell Count 4.62 M/mm3 (4.30-5.90); White Blood Cell Count 7.08 K/mm3 (4.00-11.30)
[2024-04-16 18:38] LABS: Albumin, Blood 3.2 g/dL (3.4-5.0); Albumin/Globulin Ratio 0.8 (0.8-1.8); Bilirubin, Total 0.2 mg/dL (0.1-1.0); Bun/Creatinine Ratio 9.7 (12.0-20.0); Calcium, Blood 8.7 mg/dL (8.5-10.1); Creatinine, Blood 0.83 mg/dL (0.60-1.20); Globulin, Blood 4.1 g/dL (2.2-4.0); Potassium, Blood 3.4 mmol/L (3.5-5.5); Total Protein, Blood 7.3 g/dL (6.4-8.2)
[2024-04-16 18:56] LABS: Influenza A, PCR NEGATIVE (NEGATIVE); Influenza B, PCR NEGATIVE (NEGATIVE); Resp Syncytial Virus, PCR NEGATIVE (NEGATIVE); SARS-Cov-2 (COVID-19) PCR, MMC NEGATIVE (NEGATIVE)
[2024-04-16] MEDS ORDERED: Potassium Chloride 20 MEQ TabCR PO ONE (19:25)
[2024-04-16 19:30] VITALS: BP 154/101
== END 2024-04-16 19:40 | disposition home or self-care (01) ==
LOC: ER 17:32
PROVIDERS: Emergency Medicine
DX: K29.00 Acute gastritis without bleeding (principal); E87.6 Hypokalemia; R51.9 Headache, unspecified; Z88.8 Allergy status to other drugs, medicaments and biological substances; Z88.6 Allergy status to analgesic agent; Z88.0 Allergy status to penicillin; Z88.5 Allergy status to narcotic agent; Z79.899 Other long term (current) drug therapy; G43.909 Migraine, unspecified, not intractable, without status migrainosus; Z85.3 Personal history of malignant neoplasm of breast; F17.210 Nicotine dependence, cigarettes, uncomplicated
CPT/HCPCS: 0241U; 80053; 83690; 85025; A9270; J1790; J7030

== ENCOUNTER 2024-12-16 14:33 | Emergency (ER) | payer OTHER ==
[~2024-12-16] VITALS: Ht 162.6 cm; Wt 73.9 kg
[2024-12-16 15:15] VITALS: BP 146/101
== END 2024-12-16 16:09 | disposition home or self-care (01) ==
LOC: ER 14:33
DX: S60.212A Contusion of left wrist, initial encounter (principal); S80.01XA Contusion of right knee, initial encounter; G43.909 Migraine, unspecified, not intractable, without status migrainosus; F17.210 Nicotine dependence, cigarettes, uncomplicated; Z88.8 Allergy status to other drugs, medicaments and biological substances; Z88.6 Allergy status to analgesic agent; Z88.0 Allergy status to penicillin; Z88.5 Allergy status to narcotic agent; Z91.048 Other nonmedicinal substance allergy status; Z79.899 Other long term (current) drug therapy; Z96.643 Presence of artificial hip joint, bilateral; W05.0XXA Fall from non-moving wheelchair, initial encounter
CPT/HCPCS: 73110; 73562-RT; 93005; 93010; 99285-25

== ENCOUNTER 2025-02-27 17:39 | Emergency (ER) | payer OTHER ==
[~2025-02-27] VITALS: Ht 170.2 cm; Wt 73.5 kg
[2025-02-27 18:25] LABS: BASOPHILS ABSOLUTE AUTO 0.05 K/mm3 (0.00-0.23); BASOPHILS PERCENT AUTO 1 % (0-2); EOSINOPHILS ABSOLUTE AUTO 0.37 K/mm3 (0.00-0.68); EOSINOPHILS PERCENT AUTO 6 % (0-6); Hematocrit 42.6 % (37.0-53.0); Hemoglobin 14.4 g/dL (13.5-17.5); IMMATURE GRAN ABSOLUTE AUTO 0.01 K/mm3 (0.00-0.10); IMMATURE GRAN PERCENT AUTO 0 % (0-1); LYMPHOCYTES ABSOLUTE AUTO 1.65 K/mm3 (0.84-5.20); LYMPHOCYTES PERCENT AUTO 25 % (21-46); MONOCYTES ABSOLUTE AUTO 0.44 K/mm3 (0.16-1.47); MONOCYTES PERCENT AUTO 7 % (4-13); Mean Corpuscular HGB 31.9 pg (26.0-34.0); Mean Corpuscular HGB Conc 33.8 g/dL (31.5-36.5); Mean Corpuscular Volume 95 fL (80-100); Mean Platelet Volume 11.6 fL (9.1-12.4); NEUTROPHILS ABSOLUTE AUTO 4.17 K/mm3 (1.96-9.15); NEUTROPHILS PERCENT AUTO 62 % (41-73); Platelet Count 182 K/mm3 (150-400); RDW Coefficient Variation 13.6 % (11.7-14.2); RDW Standard Deviation 47.8 fL (35.1-46.3); Red Blood Cell Count 4.51 M/mm3 (4.30-5.90); White Blood Cell Count 6.69 K/mm3 (4.00-11.30)
[2025-02-27] MEDS ORDERED: Miconazole Nitrate 2% 85 GM PWD TOP ONE (18:40)
[2025-02-27 18:42] LABS: Albumin, Blood 1.7 g/dL (3.4-5.0); Albumin/Globulin Ratio 0.3 (0.8-1.8); Bilirubin, Total 0.2 mg/dL (0.1-1.0); Bun/Creatinine Ratio 21.6 (12.0-20.0); Creatinine, Blood 0.93 mg/dL (0.60-1.20); Globulin, Blood 5.7 g/dL (2.2-4.0); Potassium, Blood 3.5 mmol/L (3.5-5.5); Total Protein, Blood 7.4 g/dL (6.4-8.2)
[2025-02-27] MEDS ORDERED: MICONAZOLE NITR85 GM TOP (19:18)
[2025-02-27 19:33] VITALS: BP 141/86
[2025-03-07] MEDS ORDERED: B-1100 M1 PO (11:24)
[2025-03-07] MEDS ORDERED: VISBIOME 112.51 EACH PO (11:25)
[2025-03-07] MEDS ORDERED: CLIN300 PO (11:27)
== END 2025-02-27 19:36 | disposition home or self-care (01) ==
LOC: ER 17:39
PROVIDERS: Student in an Organized Health Care Education/Training Program
DX: B37.9 Candidiasis, unspecified (principal); N50.812 Left testicular pain; F17.210 Nicotine dependence, cigarettes, uncomplicated; Z88.0 Allergy status to penicillin; Z88.1 Allergy status to other antibiotic agents; Z88.5 Allergy status to narcotic agent; Z88.8 Allergy status to other drugs, medicaments and biological substances; Z79.899 Other long term (current) drug therapy
CPT/HCPCS: 76870; 80053; 84484; 85025; 93005; 93010; 99284-25; A9270

== ENCOUNTER 2025-04-21 00:26 | Observation (INO) | payer OTHER ==
[~2025-04-21] VITALS: Ht 170.2 cm; Wt 72.2 kg
[~2025-04-21 00:26] MED LIST changes: +B-1100 M1 PO; +CLIN300 PO; +MICONAZOLE NITR85 GM TOP; +VISBIOME 112.51 EACH PO
[2025-04-21 02:13] LABS: BASOPHILS ABSOLUTE AUTO 0.05 K/mm3 (0.00-0.23); BASOPHILS PERCENT AUTO 1 % (0-2); EOSINOPHILS ABSOLUTE AUTO 0.35 K/mm3 (0.00-0.68); EOSINOPHILS PERCENT AUTO 6 % (0-6); Hematocrit 39.3 % (37.0-53.0); Hemoglobin 13.3 g/dL (13.5-17.5); IMMATURE GRAN ABSOLUTE AUTO 0.02 K/mm3 (0.00-0.10); IMMATURE GRAN PERCENT AUTO 0 % (0-1); LYMPHOCYTES ABSOLUTE AUTO 1.41 K/mm3 (0.84-5.20); LYMPHOCYTES PERCENT AUTO 23 % (21-46); MONOCYTES ABSOLUTE AUTO 0.43 K/mm3 (0.16-1.47); MONOCYTES PERCENT AUTO 7 % (4-13); Mean Corpuscular HGB Conc 33.8 g/dL (31.5-36.5); Mean Corpuscular Volume 95 fL (80-100); NEUTROPHILS ABSOLUTE AUTO 3.78 K/mm3 (1.96-9.15); NEUTROPHILS PERCENT AUTO 63 % (41-73); NRBC ABSOLUTE 0.00 K/mm3 (0.00-0.02); NRBC Auto 0.0 /100 WBC (0.0-0.2); Platelet Count 167 K/mm3 (150-400); RDW Coefficient Variation 14.0 % (11.7-14.2); RDW Standard Deviation 48.9 fL (35.1-46.3)
[2025-04-21 02:26] LABS: Alanine Aminotransfer (ALT/SGP 25.0 U/L (12-78); Albumin, Blood 3.5 g/dL (3.4-5.0); Albumin/Globulin Ratio 0.8 (0.8-1.8); Anion Gap 9.0 mmol/L (3-11); Aspartate Aminotrans (AST/SGOT 22.0 U/L (12-37); Bilirubin, Total 0.6 mg/dL (0.1-1.0); Blood Urea Nitrogen 11.0 mg/dL (8-24); CO2, Blood 24.0 mmol/L (21-32); Calcium, Blood 8.4 mg/dL (8.5-10.1); Chloride, Blood 105.0 mmol/L (98-108); Creatinine, Blood 0.77 mg/dL (0.60-1.20); Globulin, Blood 4.4 g/dL (2.2-4.0); Glucose, Blood 97.0 mg/dL (70-99); Potassium, Blood 3.4 mmol/L (3.5-5.5); Sodium, Blood 135.0 mmol/L (136-145); Total Protein, Blood 7.9 g/dL (6.4-8.2); Uric Acid, Blood 9.6 mg/dL (3.5-7.2)
[2025-04-21 02:56] LABS: Prothrombin Time Results 11.6 Sec (9.7-11.5)
[2025-04-21 04:07] LABS: Source, Urine Clean Catch
[2025-04-21 04:11] LABS: Bilirubin, Urine Neg (Neg); Glucose Qualitative, Urine Neg (Neg); Ketones, Urine Neg (Neg); Leukocyte Esterase, Urine Neg (Neg); Protein, Urine Neg (Neg); Specific Gravity, Urine 1.010 (1.003-1.022); Urobilinogen, Urine NORM (Normal)
[2025-04-21 04:12] LABS: Color, Urine Pale Yellow (P-Yellow)
[2025-04-21] MEDS ORDERED: DiphenhydrAMINE HCl 50 MG/ML 1ML Vial IV ONE (04:45)
[2025-04-21] MEDS ORDERED: Potassium Chl 20MEQ/Water100ML 100 ML IV ONE (04:45)
[2025-04-21] MEDS ORDERED: NS 1,000 ML IV SCH (04:45)
[2025-04-21] MEDS ORDERED: Trimethoprim/Sulfamethoxazole DS Tab PO ONE (05:20)
[2025-04-21] MEDS ORDERED: Clindamycin 900mg in D5W 50ML 50 ML IV SCH (06:05)
[2025-04-21 08:59] LABS: U Amphetamine Screen DETECTED; U Barbituate Screen Not Detected; U Benzodiazapine Screen Not Detected; U Buprenorphine Screen Not Detected; U Cannabinoids Screen Not Detected; U Cocaine Screen Not Detected; U Methadone Screen Not Detected; U Methamphetamine Screen DETECTED; U Opiates Screen Not Detected; U Oxycodone Screen Not Detected; U Phencyclidine Screen Not Detected
[2025-04-21] MEDS ORDERED: Enoxaparin 40 MG/0.4 ML SYR SC SCH (09:00)
[2025-04-21] MEDS ORDERED: Lactobacil 2-S.Thermo-Bifido 1 1 Cap PO SCH (09:00)
[2025-04-21 15:52] VITALS: BP 149/102
--- NOTE | 2025-04-21 17:06 | NUR ---
SHIFT SUMMARY PT AOX4, PARANOID. FORGETFUL AT TIMES. REPOSITIONS SELF IN BED. PICTURES OF BLLE IN THE CHART ALONG WITH THE COCCYX. DRESSINGS APPLIED, PROVIDER AWARE. NO ACUTE COMPLAINTS SINCE THE ADMIT. PT IS INDEPENDENT WITH HIS WC. USES THE URINAL. CALL LIGHT WITHIN REACH, BED LOCKED AND IN THE LOWEST POSITION. WILL REPORT TO ONCOMING NURSE.
[2025-04-21] MEDS ORDERED: NS 250 ML IV PRN (17:40)
[2025-04-21 20:05] VITALS: BP 138/89
[2025-04-22 03:48] VITALS: BP 129/86
--- NOTE | 2025-04-22 04:47 | NUR ---
SHIFT SUMMARY; PATIENT SLEPT IN SHORT INTERVALS, MEDICATED FOR LEG PAIN TWICE. HUNGRY AND PLEASANT TO WORK WITH.
[2025-04-22 07:12] VITALS: BP 126/81
[2025-04-22] MEDS ORDERED: ARIP30 IM (09:46)
[2025-04-22] MEDS ORDERED: Docusate Sodiu250 MG PO (09:47)
[2025-04-22] MEDS ORDERED: ATOM40 PO (09:47)
[2025-04-22] MEDS ORDERED: HYDPAM25 PO (09:48)
[2025-04-22] MEDS ORDERED: FURO20 PO (09:48)
[2025-04-22] MEDS ORDERED: KETO15TC TOP (09:51)
[2025-04-22] MEDS ORDERED: ACIDOPHILUS1 EAC3 PO (09:52)
[2025-04-22] MEDS ORDERED: LIDO5TO TOP (09:53)
[2025-04-22] MEDS ORDERED: LIDO700A20 TOP (09:54)
[2025-04-22] MEDS ORDERED: OXAYDO5 M1 PO (09:57)
[2025-04-22 14:52] VITALS: BP 122/77
--- NOTE | 2025-04-22 16:36 | NUR ---
SHIFT SUMMARY PT AOX4, INDEPENDENT TO THE BR WITH HIS OWN PERSONAL WC. USES THE URINAL OCCASSIONALLY. MEDICATED FOR PAIN PER THE EMAR. CALLS AND MAKES HIS NEEDED KNOWN. DRESSING TO THE LLE DUE TO CLEAR LIQUID LEAKING. POSSIBLE DC TOMORROW. PT AWARE. REPOSITIONS SELF IN HIS WC OR WHEN IN THE BED. CALL LIGHT WITHIN REACH, BED LOCKED AND IN THE LOWEST POSITION. WILL REPORT TO ONCOMING NURSE.
[2025-04-22 19:53] VITALS: BP 135/81
[2025-04-23 02:19] VITALS: BP 141/84
--- NOTE | 2025-04-23 04:03 | NUR ---
SHIFT SUMMARY ADMITTED FOR CELLULITIS. FULL CODE. PO ANTIB RX ARE SCHEDULED. HE IS HOPEFUL FOR DC HOME TODAY. PAIN MEDICATION GIVEN THIS SHIFT. HE IS A&O X3-4, ON RA, REGULAR DIET. NO PARANOID DELUSIONS REPORTED. HE TRANSFERS HIMSELF TO AND FROM HIS WHEELCHAIR. HE IS A [facility]. NO NEW CONCERNS THIS SHIFT.
[2025-04-23 07:09] VITALS: BP 143/91
[2025-04-23] MEDS ORDERED: DOXY100 PO (12:15)
--- NOTE | 2025-04-23 15:50 | NUR ---
DISCHARGE NOTE: WENT OVER DISCHARGE WITH THE PATIENT, IV REMOVED, PATIENT COLLECTED BELONGINGS AND GOT DRESSED. PATIENT WHEELED HIMSELF DOWN IN PERSONAL WHEELCHAIR WITH SECURITY TO GET HIS BELONGINGS; CIGARETTES AND CLOTH WASHER BACK TENDER. NO SIGNS OR SYMPTOMS OF DISTRESS WITH PATIENT DURING DISCHARGE.
== END 2025-04-23 15:53 | disposition home health service (06) ==
LOC: ER 00:26 → ERHOLD 00:27 → MEDS 00:27
PROVIDERS: Emergency Medicine; Internal Medicine; ADMIT Internal Medicine
DX: L03.116 Cellulitis of left lower limb (principal); L03.115 Cellulitis of right lower limb; M25.561 Pain in right knee; G89.29 Other chronic pain; L30.9 Dermatitis, unspecified; R74.02 Elevation of levels of lactic acid dehydrogenase [LDH]; R82.5 Elevated urine levels of drugs, medicaments and biological substances; F20.0 Paranoid schizophrenia; Z88.8 Allergy status to other drugs, medicaments and biological substances; Z88.0 Allergy status to penicillin; Z88.6 Allergy status to analgesic agent; Z79.899 Other long term (current) drug therapy
CPT/HCPCS: 73560-RT; 74177; 80053; 81003; 83605; 84550; 85025; 85610; 85730; 96365; 96366; 96367; 96372; 96375; 96376; 99285-25; A9270; G0378; J1200; J1650; J3480; J7030; J7050; Q9967

== ENCOUNTER 2025-06-26 14:27 | Emergency (ER) | payer OTHER ==
[~2025-06-26] VITALS: Ht 170.2 cm; Wt 73.5 kg
[~2025-06-26 14:27] MED LIST changes: +ACIDOPHILUS1 EAC3 PO; +ARIP30 IM; +ATOM40 PO; +Docusate Sodiu250 MG PO; +HYDPAM25 PO; +KETO15TC TOP; +LIDO5TO TOP; +OXAYDO5 M1 PO
[2025-06-26] MEDS ORDERED: Ondansetron HCl 2 MG / ML 2ML Vial IV ONE (15:05)
[2025-06-26] MEDS ORDERED: Morphine Sulfate 4 MG/1 ML Injection IV ONE (15:05)
[2025-06-26 15:30] LABS: BASOPHILS ABSOLUTE AUTO 0.04 K/mm3 (0.00-0.23); BASOPHILS PERCENT AUTO 1 % (0-2); EOSINOPHILS ABSOLUTE AUTO 0.24 K/mm3 (0.00-0.68); EOSINOPHILS PERCENT AUTO 3 % (0-6); Hematocrit 39.8 % (37.0-53.0); Hemoglobin 13.8 g/dL (13.5-17.5); IMMATURE GRAN ABSOLUTE AUTO 0.02 K/mm3 (0.00-0.10); IMMATURE GRAN PERCENT AUTO 0 % (0-1); LYMPHOCYTES ABSOLUTE AUTO 1.43 K/mm3 (0.84-5.20); LYMPHOCYTES PERCENT AUTO 19 % (21-46); MONOCYTES ABSOLUTE AUTO 0.60 K/mm3 (0.16-1.47); MONOCYTES PERCENT AUTO 8 % (4-13); Mean Corpuscular HGB Conc 34.7 g/dL (31.5-36.5); Mean Corpuscular Volume 93 fL (80-100); NEUTROPHILS ABSOLUTE AUTO 5.06 K/mm3 (1.96-9.15); NEUTROPHILS PERCENT AUTO 69 % (41-73); NRBC ABSOLUTE 0.00 K/mm3 (0.00-0.02); NRBC Auto 0.0 /100 WBC (0.0-0.2); Platelet Count 177 K/mm3 (150-400); RDW Coefficient Variation 12.7 % (11.7-14.2); RDW Standard Deviation 42.9 fL (35.1-46.3)
[2025-06-26 15:50] LABS: Alanine Aminotransfer (ALT/SGP 21.0 U/L (12-78); Albumin, Blood 3.2 g/dL (3.4-5.0); Albumin/Globulin Ratio 0.7 (0.8-1.8); Anion Gap 12.0 mmol/L (3-11); Aspartate Aminotrans (AST/SGOT 30.0 U/L (12-37); Bilirubin, Total 0.6 mg/dL (0.1-1.0); Blood Urea Nitrogen 13.0 mg/dL (8-24); CO2, Blood 23.0 mmol/L (21-32); Calcium, Blood 8.4 mg/dL (8.5-10.1); Chloride, Blood 105.0 mmol/L (98-108); Creatinine, Blood 0.75 mg/dL (0.60-1.20); Globulin, Blood 4.5 g/dL (2.2-4.0); Glucose, Blood 98.0 mg/dL (70-99); Potassium, Blood 3.6 mmol/L (3.5-5.5); Sodium, Blood 136.0 mmol/L (136-145); Total Protein, Blood 7.7 g/dL (6.4-8.2)
[2025-06-26] MEDS ORDERED: NS 1,000 ML IV SCH (21:05)
[2025-06-26] MEDS ORDERED: RX Prepack 6 Tabs Oxycodone 5mg UD ONE (22:50)
[2025-06-26 23:00] VITALS: BP 155/97
== END 2025-06-26 23:11 | disposition home or self-care (01) ==
LOC: ER 14:27
PROVIDERS: Student in an Organized Health Care Education/Training Program
DX: K80.20 Calculus of gallbladder without cholecystitis without obstruction (principal); Z88.8 Allergy status to other drugs, medicaments and biological substances; Z88.0 Allergy status to penicillin; Z88.5 Allergy status to narcotic agent; Z79.899 Other long term (current) drug therapy; Z87.891 Personal history of nicotine dependence
CPT/HCPCS: 74177; 80053; 83605; 83690; 85025; 99284-25; A9270; J7030; Q9967

== ENCOUNTER 2025-06-29 13:17 | Emergency (ER) | payer OTHER ==
[~2025-06-29] VITALS: Ht 167.6 cm; Wt 73.5 kg
[2025-06-29 15:16] LABS: BASOPHILS ABSOLUTE AUTO 0.06 K/mm3 (0.00-0.23); BASOPHILS PERCENT AUTO 1 % (0-2); EOSINOPHILS ABSOLUTE AUTO 0.33 K/mm3 (0.00-0.68); EOSINOPHILS PERCENT AUTO 6 % (0-6); Hematocrit 40.0 % (37.0-53.0); Hemoglobin 13.7 g/dL (13.5-17.5); IMMATURE GRAN ABSOLUTE AUTO 0.01 K/mm3 (0.00-0.10); IMMATURE GRAN PERCENT AUTO 0 % (0-1); LYMPHOCYTES ABSOLUTE AUTO 1.50 K/mm3 (0.84-5.20); LYMPHOCYTES PERCENT AUTO 27 % (21-46); MONOCYTES ABSOLUTE AUTO 0.43 K/mm3 (0.16-1.47); MONOCYTES PERCENT AUTO 8 % (4-13); Mean Corpuscular HGB Conc 34.3 g/dL (31.5-36.5); Mean Corpuscular Volume 95 fL (80-100); NEUTROPHILS ABSOLUTE AUTO 3.28 K/mm3 (1.96-9.15); NEUTROPHILS PERCENT AUTO 58 % (41-73); NRBC ABSOLUTE 0.00 K/mm3 (0.00-0.02); NRBC Auto 0.0 /100 WBC (0.0-0.2); Platelet Count 155 K/mm3 (150-400); RDW Coefficient Variation 12.6 % (11.7-14.2); RDW Standard Deviation 43.7 fL (35.1-46.3)
[2025-06-29 15:41] LABS: Alanine Aminotransfer (ALT/SGP 21.0 U/L (12-78); Albumin, Blood 3.0 g/dL (3.4-5.0); Albumin/Globulin Ratio 0.7 (0.8-1.8); Anion Gap 11.0 mmol/L (3-11); Aspartate Aminotrans (AST/SGOT 22.0 U/L (12-37); Bilirubin, Total 0.4 mg/dL (0.1-1.0); Blood Urea Nitrogen 12.0 mg/dL (8-24); CO2, Blood 21.0 mmol/L (21-32); Calcium, Blood 8.4 mg/dL (8.5-10.1); Chloride, Blood 107.0 mmol/L (98-108); Creatinine, Blood 0.82 mg/dL (0.60-1.20); Globulin, Blood 4.1 g/dL (2.2-4.0); Glucose, Blood 93.0 mg/dL (70-99); Potassium, Blood 3.4 mmol/L (3.5-5.5); Sodium, Blood 136.0 mmol/L (136-145); Total Protein, Blood 7.1 g/dL (6.4-8.2)
[2025-06-29] MEDS ORDERED: NS 1,000 ML IV SCH ×3 (17:35→21:35)
[2025-06-29] MEDS ORDERED: Morphine Sulfate 4 MG/1 ML Injection IV ONE ×2 (17:50→20:10)
[2025-06-29 18:30] LABS: Source, Urine Clean Catch
[2025-06-29 18:32] LABS: Bilirubin, Urine Neg (Neg); Glucose Qualitative, Urine Neg (Neg); Ketones, Urine Neg (Neg); Leukocyte Esterase, Urine Neg (Neg); Protein, Urine Neg (Neg); Specific Gravity, Urine 1.010 (1.003-1.022); Urobilinogen, Urine NORM (Normal)
[2025-06-29 18:41] LABS: Color, Urine Pale Yellow (P-Yellow)
[2025-06-29 18:50] LABS: U Amphetamine Screen DETECTED; U Barbituate Screen Not Detected; U Benzodiazapine Screen Not Detected; U Buprenorphine Screen Not Detected; U Cannabinoids Screen Not Detected; U Cocaine Screen Not Detected; U Methadone Screen Not Detected; U Methamphetamine Screen DETECTED; U Opiates Screen DETECTED; U Oxycodone Screen DETECTED; U Phencyclidine Screen Not Detected
[2025-06-29] MEDS ORDERED: HYDROmorphone HCl/Pf 1MG SYR ONE (22:48)
[2025-06-30] MEDS ORDERED: FentaNYL Citrate 50 MCG/ML 2 ML Injection IV ONE (00:55)
[2025-06-30 01:14] VITALS: BP 150/90
[2025-06-30] MEDS ORDERED: ONDA4ODT MM (20:11)
[2025-06-30] MEDS ORDERED: Protonix40 MG PO (20:11)
[2025-06-30] MEDS ORDERED: Pepto-Bismol262 M1 PO (20:11)
[2025-06-30] MEDS ORDERED: [UNRECOGNIZED DRUG - CODE] PO (20:28)
== END 2025-06-30 02:27 | disposition home or self-care (01) ==
LOC: ER 13:17
PROVIDERS: Student in an Organized Health Care Education/Training Program
DX: K80.20 Calculus of gallbladder without cholecystitis without obstruction (principal); F15.90 Other stimulant use, unspecified, uncomplicated; E87.20 Acidosis, unspecified; Z88.0 Allergy status to penicillin; Z79.2 Long term (current) use of antibiotics; Z79.899 Other long term (current) drug therapy; Z88.1 Allergy status to other antibiotic agents; Z88.5 Allergy status to narcotic agent; Z87.891 Personal history of nicotine dependence
CPT/HCPCS: 71046; 74174; 76705; 80053; 81003; 83605; 83690; 84484; 85025; 93005; 93010; 96361; 96374-59; 96375; 96376-59; 99285-25; A9270; J1171; J2270; J3010; J7030; Q9967

== ENCOUNTER 2025-06-30 12:09 | Emergency (ER) | payer OTHER ==
[~2025-06-30] VITALS: Ht 162.6 cm; Wt 73.5 kg
[2025-06-30 13:52] LABS: BASOPHILS ABSOLUTE AUTO 0.04 K/mm3 (0.00-0.23); BASOPHILS PERCENT AUTO 1 % (0-2); EOSINOPHILS ABSOLUTE AUTO 0.31 K/mm3 (0.00-0.68); EOSINOPHILS PERCENT AUTO 6 % (0-6); Hematocrit 41.4 % (37.0-53.0); Hemoglobin 14.0 g/dL (13.5-17.5); IMMATURE GRAN ABSOLUTE AUTO 0.01 K/mm3 (0.00-0.10); IMMATURE GRAN PERCENT AUTO 0 % (0-1); LYMPHOCYTES ABSOLUTE AUTO 1.20 K/mm3 (0.84-5.20); LYMPHOCYTES PERCENT AUTO 23 % (21-46); MONOCYTES ABSOLUTE AUTO 0.31 K/mm3 (0.16-1.47); MONOCYTES PERCENT AUTO 6 % (4-13); Mean Corpuscular HGB Conc 33.8 g/dL (31.5-36.5); Mean Corpuscular Volume 95 fL (80-100); NEUTROPHILS ABSOLUTE AUTO 3.36 K/mm3 (1.96-9.15); NEUTROPHILS PERCENT AUTO 64 % (41-73); NRBC ABSOLUTE 0.00 K/mm3 (0.00-0.02); NRBC Auto 0.0 /100 WBC (0.0-0.2); Platelet Count 164 K/mm3 (150-400); RDW Coefficient Variation 12.8 % (11.7-14.2); RDW Standard Deviation 44.1 fL (35.1-46.3)
[2025-06-30 14:18] LABS: Alanine Aminotransfer (ALT/SGP 25.0 U/L (12-78); Albumin, Blood 3.4 g/dL (3.4-5.0); Albumin/Globulin Ratio 0.7 (0.8-1.8); Anion Gap 12.0 mmol/L (3-11); Aspartate Aminotrans (AST/SGOT 48.0 U/L (12-37); Bilirubin, Total 0.9 mg/dL (0.1-1.0); Blood Urea Nitrogen 7.0 mg/dL (8-24); CO2, Blood 22.0 mmol/L (21-32); Calcium, Blood 8.4 mg/dL (8.5-10.1); Chloride, Blood 104.0 mmol/L (98-108); Creatinine, Blood 0.68 mg/dL (0.60-1.20); Globulin, Blood 5.0 g/dL (2.2-4.0); Glucose, Blood 89.0 mg/dL (70-99); Potassium, Blood 5.2 mmol/L (3.5-5.5); Sodium, Blood 133.0 mmol/L (136-145); Total Protein, Blood 8.4 g/dL (6.4-8.2)
[2025-06-30] MEDS ORDERED: Ondansetron HCl 2 MG / ML 2ML Vial IV ONE (17:50)
[2025-06-30] MEDS ORDERED: Pantoprazole Sodium 40 MG Injection IV ONE (17:50)
[2025-06-30] MEDS ORDERED: NS 1,000 ML IV SCH (18:50)
[2025-06-30 19:12] LABS: Source, Urine Clean Catch
[2025-06-30 19:15] LABS: Bilirubin, Urine Neg (Neg); Color, Urine Yellow (P-Yellow); Glucose Qualitative, Urine Neg (Neg); Ketones, Urine Neg (Neg); Leukocyte Esterase, Urine Neg (Neg); Protein, Urine Neg (Neg); Specific Gravity, Urine 1.015 (1.003-1.022); Urobilinogen, Urine NORM (Normal)
[2025-06-30 19:27] LABS: U Amphetamine Screen DETECTED; U Methamphetamine Screen DETECTED; U Opiates Screen DETECTED
[2025-06-30 19:28] LABS: U Barbituate Screen Not Detected; U Benzodiazapine Screen Not Detected; U Buprenorphine Screen Not Detected; U Cannabinoids Screen Not Detected; U Cocaine Screen Not Detected; U Methadone Screen Not Detected; U Oxycodone Screen Not Detected; U Phencyclidine Screen Not Detected
[2025-06-30] MEDS ORDERED: ONDA4ODT MM (20:11)
[2025-06-30] MEDS ORDERED: Protonix40 MG PO (20:11)
[2025-06-30] MEDS ORDERED: Pepto-Bismol262 M1 PO (20:11)
[2025-06-30] MEDS ORDERED: [UNRECOGNIZED DRUG - CODE] PO (20:28)
[2025-06-30 20:30] VITALS: BP 173/102
[2025-06-30] MEDS ORDERED: RX Prepack 2 Tabs Ondansetron ODT 4MG UD ONE (20:35)
== END 2025-06-30 20:35 | disposition home or self-care (01) ==
LOC: ER 12:09
PROVIDERS: Emergency Medicine; Physician Assistant
DX: R10.10 Upper abdominal pain, unspecified (principal); F15.20 Other stimulant dependence, uncomplicated; Z88.6 Allergy status to analgesic agent; Z88.0 Allergy status to penicillin; Z88.5 Allergy status to narcotic agent; Z88.8 Allergy status to other drugs, medicaments and biological substances; Z91.048 Other nonmedicinal substance allergy status; Z79.899 Other long term (current) drug therapy; Z87.891 Personal history of nicotine dependence
CPT/HCPCS: 80053; 81003; 82140; 83605; 83690; 84443; 84484; 85025; 86850; 86900; 86901; 87086; 96374; 96375; 99284-25; A9270; J2405; J2470; J7030

== ENCOUNTER 2025-07-04 21:14 | Emergency (ER) | payer OTHER ==
[~2025-07-04] VITALS: Ht 162.6 cm; Wt 72.6 kg
[~2025-07-04 21:14] MED LIST changes: +Pepto-Bismol262 M1 PO; +Protonix40 MG PO; +[UNRECOGNIZED DRUG - CODE] PO
[2025-07-04 22:05] LABS: BASOPHILS ABSOLUTE AUTO 0.05 K/mm3 (0.00-0.23); BASOPHILS PERCENT AUTO 1 % (0-2); EOSINOPHILS ABSOLUTE AUTO 0.23 K/mm3 (0.00-0.68); EOSINOPHILS PERCENT AUTO 3 % (0-6); Hematocrit 44.3 % (37.0-53.0); Hemoglobin 15.0 g/dL (13.5-17.5); IMMATURE GRAN ABSOLUTE AUTO 0.02 K/mm3 (0.00-0.10); IMMATURE GRAN PERCENT AUTO 0 % (0-1); LYMPHOCYTES ABSOLUTE AUTO 1.21 K/mm3 (0.84-5.20); LYMPHOCYTES PERCENT AUTO 16 % (21-46); MONOCYTES ABSOLUTE AUTO 0.55 K/mm3 (0.16-1.47); MONOCYTES PERCENT AUTO 8 % (4-13); Mean Corpuscular HGB Conc 33.9 g/dL (31.5-36.5); Mean Corpuscular Volume 96 fL (80-100); NEUTROPHILS ABSOLUTE AUTO 5.30 K/mm3 (1.96-9.15); NEUTROPHILS PERCENT AUTO 72 % (41-73); NRBC ABSOLUTE 0.00 K/mm3 (0.00-0.02); NRBC Auto 0.0 /100 WBC (0.0-0.2); Platelet Count 178 K/mm3 (150-400); RDW Coefficient Variation 13.0 % (11.7-14.2); RDW Standard Deviation 45.5 fL (35.1-46.3)
[2025-07-04 22:27] LABS: Alanine Aminotransfer (ALT/SGP 25.0 U/L (12-78); Albumin, Blood 4.0 g/dL (3.4-5.0); Albumin/Globulin Ratio 0.8 (0.8-1.8); Anion Gap 10.0 mmol/L (3-11); Aspartate Aminotrans (AST/SGOT 31.0 U/L (12-37); Bilirubin, Total 0.8 mg/dL (0.1-1.0); Blood Urea Nitrogen 13.0 mg/dL (8-24); CO2, Blood 24.0 mmol/L (21-32); Calcium, Blood 9.4 mg/dL (8.5-10.1); Chloride, Blood 105.0 mmol/L (98-108); Creatinine, Blood 0.96 mg/dL (0.60-1.20); Globulin, Blood 4.8 g/dL (2.2-4.0); Glucose, Blood 108.0 mg/dL (70-99); Potassium, Blood 3.7 mmol/L (3.5-5.5); Sodium, Blood 135.0 mmol/L (136-145); Total Protein, Blood 8.8 g/dL (6.4-8.2)
[2025-07-04] MEDS ORDERED: MIRALAX17 GM PO (22:44)
[2025-07-04 22:59] VITALS: BP 149/112
== END 2025-07-04 23:43 | disposition home or self-care (01) ==
LOC: ER 21:14
PROVIDERS: Emergency Medicine
DX: K59.00 Constipation, unspecified (principal); K64.4 Residual hemorrhoidal skin tags; K92.1 Melena; Z87.891 Personal history of nicotine dependence; Z88.5 Allergy status to narcotic agent; Z88.6 Allergy status to analgesic agent; Z88.0 Allergy status to penicillin; Z91.048 Other nonmedicinal substance allergy status; Z79.899 Other long term (current) drug therapy
CPT/HCPCS: 80053; 85025; 99284

== ENCOUNTER 2025-08-31 19:04 | Emergency (ER) | payer OTHER ==
[~2025-08-31] VITALS: Ht 165.1 cm; Wt 73.5 kg
[~2025-08-31 19:04] MED LIST changes: +ABILIFY MYCITE30 M2 PO; +MIRALAX17 GM PO
[2025-08-31 19:39] LABS: BASOPHILS ABSOLUTE AUTO 0.05 K/mm3 (0.00-0.23); BASOPHILS PERCENT AUTO 1 % (0-2); EOSINOPHILS ABSOLUTE AUTO 0.59 K/mm3 (0.00-0.68); EOSINOPHILS PERCENT AUTO 11 % (0-6); Hematocrit 39.3 % (37.0-53.0); Hemoglobin 12.8 g/dL (13.5-17.5); IMMATURE GRAN ABSOLUTE AUTO 0.01 K/mm3 (0.00-0.10); IMMATURE GRAN PERCENT AUTO 0 % (0-1); LYMPHOCYTES ABSOLUTE AUTO 1.50 K/mm3 (0.84-5.20); LYMPHOCYTES PERCENT AUTO 28 % (21-46); MONOCYTES ABSOLUTE AUTO 0.46 K/mm3 (0.16-1.47); MONOCYTES PERCENT AUTO 9 % (4-13); Mean Corpuscular HGB Conc 32.6 g/dL (31.5-36.5); Mean Corpuscular Volume 94 fL (80-100); NEUTROPHILS ABSOLUTE AUTO 2.82 K/mm3 (1.96-9.15); NEUTROPHILS PERCENT AUTO 52 % (41-73); NRBC ABSOLUTE 0.00 K/mm3 (0.00-0.02); NRBC Auto 0.0 /100 WBC (0.0-0.2); Platelet Count 172 K/mm3 (150-400); RDW Coefficient Variation 12.0 % (11.7-14.2); RDW Standard Deviation 41.5 fL (35.1-46.3)
[2025-08-31 20:13] LABS: Alanine Aminotransfer (ALT/SGP 36.0 U/L (12-78); Albumin, Blood 3.8 g/dL (3.4-5.0); Albumin/Globulin Ratio 0.9 (0.8-1.8); Anion Gap 8.0 mmol/L (3-11); Aspartate Aminotrans (AST/SGOT 24.0 U/L (12-37); Bilirubin, Total 0.3 mg/dL (0.1-1.0); Blood Urea Nitrogen 17.0 mg/dL (8-24); CO2, Blood 25.0 mmol/L (21-32); Calcium, Blood 9.2 mg/dL (8.5-10.1); Chloride, Blood 108.0 mmol/L (98-108); Creatinine, Blood 0.95 mg/dL (0.60-1.20); Globulin, Blood 4.4 g/dL (2.2-4.0); Glucose, Blood 91.0 mg/dL (70-99); Potassium, Blood 3.9 mmol/L (3.5-5.5); Sodium, Blood 137.0 mmol/L (136-145); Total Protein, Blood 8.2 g/dL (6.4-8.2)
[2025-08-31] MEDS ORDERED: Ondansetron HCl 2 MG / ML 2ML Vial IV ONE (20:20)
[2025-08-31] MEDS ORDERED: BISA5EC PO (21:07)
[2025-08-31] MEDS ORDERED: MAGCIT300 PO (21:07)
[2025-08-31 21:24] VITALS: BP 152/80
== END 2025-08-31 21:28 | disposition home or self-care (01) ==
LOC: ER 19:04
PROVIDERS: Physician Assistant
DX: R10.32 Left lower quadrant pain (principal)
CPT/HCPCS: 74177; 80053; 83690; 85025; 93005; 93010; 96374-59; 99284-25; J2405; J7120; Q9967

== ENCOUNTER 2025-09-03 09:28 | Emergency (ER) | payer OTHER ==
[~2025-09-03] VITALS: Ht 165.1 cm; Wt 68.0 kg
[~2025-09-03 09:28] MED LIST changes: +BISA5EC PO; +MAGCIT300 PO
[2025-09-03 10:15] LABS: Source, Urine Voided
[2025-09-03 10:23] LABS: Bilirubin, Urine Neg (Neg); Color, Urine Yellow (P-Yellow); Glucose Qualitative, Urine Neg (Neg); Ketones, Urine Neg (Neg); Leukocyte Esterase, Urine Neg (Neg); Protein, Urine Neg (Neg); Specific Gravity, Urine 1.015 (1.003-1.022); Urobilinogen, Urine NORM (Normal)
[2025-09-03 10:27] LABS: BASOPHILS ABSOLUTE AUTO 0.01 K/mm3 (0.00-0.23); BASOPHILS PERCENT AUTO 0 % (0-2); EOSINOPHILS ABSOLUTE AUTO 0.01 K/mm3 (0.00-0.68); EOSINOPHILS PERCENT AUTO 0 % (0-6); Hematocrit 38.7 % (37.0-53.0); Hemoglobin 12.6 g/dL (13.5-17.5); IMMATURE GRAN ABSOLUTE AUTO 0.03 K/mm3 (0.00-0.10); IMMATURE GRAN PERCENT AUTO 0 % (0-1); LYMPHOCYTES ABSOLUTE AUTO 0.77 K/mm3 (0.84-5.20); LYMPHOCYTES PERCENT AUTO 9 % (21-46); MONOCYTES ABSOLUTE AUTO 0.27 K/mm3 (0.16-1.47); MONOCYTES PERCENT AUTO 3 % (4-13); Mean Corpuscular HGB Conc 32.6 g/dL (31.5-36.5); Mean Corpuscular Volume 92 fL (80-100); NEUTROPHILS ABSOLUTE AUTO 7.61 K/mm3 (1.96-9.15); NEUTROPHILS PERCENT AUTO 88 % (41-73); NRBC ABSOLUTE 0.00 K/mm3 (0.00-0.02); NRBC Auto 0.0 /100 WBC (0.0-0.2); Platelet Count 170 K/mm3 (150-400); RDW Coefficient Variation 12.2 % (11.7-14.2); RDW Standard Deviation 41.3 fL (35.1-46.3)
[2025-09-03 10:48] LABS: Alanine Aminotransfer (ALT/SGP 28.0 U/L (12-78); Albumin, Blood 3.7 g/dL (3.4-5.0); Albumin/Globulin Ratio 0.8 (0.8-1.8); Anion Gap 10.0 mmol/L (3-11); Aspartate Aminotrans (AST/SGOT 15.0 U/L (12-37); Bilirubin, Total 0.4 mg/dL (0.1-1.0); Blood Urea Nitrogen 15.0 mg/dL (8-24); CO2, Blood 27.0 mmol/L (21-32); Calcium, Blood 8.9 mg/dL (8.5-10.1); Chloride, Blood 107.0 mmol/L (98-108); Creatinine, Blood 0.82 mg/dL (0.60-1.20); Globulin, Blood 4.4 g/dL (2.2-4.0); Glucose, Blood 118.0 mg/dL (70-99); Potassium, Blood 4.1 mmol/L (3.5-5.5); Sodium, Blood 140.0 mmol/L (136-145); Total Protein, Blood 8.1 g/dL (6.4-8.2)
[2025-09-03] MEDS ORDERED: ONDA4ODT MM (13:46)
[2025-09-03] MEDS ORDERED: OXAYDO5 M1 PO (13:46)
[2025-09-03] MEDS ORDERED: Ondansetron HCl 2 MG / ML 2ML Vial IV ONE (14:00)
[2025-09-03 14:06] VITALS: BP 170/104
== END 2025-09-03 14:13 | disposition home or self-care (01) ==
LOC: ER 09:28
PROVIDERS: Student in an Organized Health Care Education/Training Program
DX: K59.00 Constipation, unspecified (principal); M79.605 Pain in left leg; M79.604 Pain in right leg; G89.29 Other chronic pain; Z79.899 Other long term (current) drug therapy; Z88.6 Allergy status to analgesic agent; Z88.0 Allergy status to penicillin; Z88.5 Allergy status to narcotic agent; Z88.8 Allergy status to other drugs, medicaments and biological substances
CPT/HCPCS: 80053; 81003; 85025; 96374; 99284-25; J2405

== ENCOUNTER 2025-09-07 21:12 | Emergency (ER) | payer OTHER ==
[~2025-09-07] VITALS: Ht 170.2 cm; Wt 73.5 kg
[2025-09-07 21:35] LABS: BASOPHILS ABSOLUTE AUTO 0.02 K/mm3 (0.00-0.23); BASOPHILS PERCENT AUTO 0 % (0-2); EOSINOPHILS ABSOLUTE AUTO 0.64 K/mm3 (0.00-0.68); EOSINOPHILS PERCENT AUTO 7 % (0-6); Hematocrit 41.2 % (37.0-53.0); Hemoglobin 13.7 g/dL (13.5-17.5); IMMATURE GRAN ABSOLUTE AUTO 0.03 K/mm3 (0.00-0.10); IMMATURE GRAN PERCENT AUTO 0 % (0-1); LYMPHOCYTES ABSOLUTE AUTO 2.01 K/mm3 (0.84-5.20); LYMPHOCYTES PERCENT AUTO 23 % (21-46); MONOCYTES ABSOLUTE AUTO 0.55 K/mm3 (0.16-1.47); MONOCYTES PERCENT AUTO 6 % (4-13); Mean Corpuscular HGB Conc 33.3 g/dL (31.5-36.5); Mean Corpuscular Volume 91 fL (80-100); NEUTROPHILS ABSOLUTE AUTO 5.55 K/mm3 (1.96-9.15); NEUTROPHILS PERCENT AUTO 63 % (41-73); NRBC ABSOLUTE 0.00 K/mm3 (0.00-0.02); NRBC Auto 0.0 /100 WBC (0.0-0.2); Platelet Count 234 K/mm3 (150-400); RDW Coefficient Variation 12.5 % (11.7-14.2); RDW Standard Deviation 42.2 fL (35.1-46.3)
[2025-09-07] MEDS ORDERED: Ondansetron HCl 2 MG / ML 2ML Vial IV ONE (21:50)
[2025-09-07 22:46] LABS: Source, Urine Clean Catch
[2025-09-07 22:46] LABS: Alanine Aminotransfer (ALT/SGP 35.0 U/L (12-78); Albumin, Blood 3.6 g/dL (3.4-5.0); Albumin/Globulin Ratio 0.9 (0.8-1.8); Anion Gap 8.0 mmol/L (3-11); Aspartate Aminotrans (AST/SGOT 24.0 U/L (12-37); Bilirubin, Total 0.5 mg/dL (0.1-1.0); Blood Urea Nitrogen 20.0 mg/dL (8-24); CO2, Blood 25.0 mmol/L (21-32); Calcium, Blood 9.2 mg/dL (8.5-10.1); Chloride, Blood 108.0 mmol/L (98-108); Creatinine, Blood 0.81 mg/dL (0.60-1.20); Globulin, Blood 4.1 g/dL (2.2-4.0); Glucose, Blood 112.0 mg/dL (70-99); Potassium, Blood 4.0 mmol/L (3.5-5.5); Sodium, Blood 137.0 mmol/L (136-145); Total Protein, Blood 7.7 g/dL (6.4-8.2)
[2025-09-07 22:53] LABS: Bilirubin, Urine Neg (Neg); Glucose Qualitative, Urine Neg (Neg); Ketones, Urine 1+ (Neg); Leukocyte Esterase, Urine Neg (Neg); Protein, Urine 1+ (Neg); Specific Gravity, Urine 1.010 (1.003-1.022); Urobilinogen, Urine 2+ (Normal)
[2025-09-07] MEDS ORDERED: Pantoprazole Sodium 40 MG Injection IV ONE (23:15)
[2025-09-07] MEDS ORDERED: Lidocaine 2% Viscous Soln 15 ML UDC PO ONE (23:15)
[2025-09-07 23:16] LABS: Color, Urine Yellow (P-Yellow); Red Blood Cells, Urine 0-2 /hpf (0-2); White Blood Cells, Urine 0-2 /hpf (0-5)
[2025-09-07] MEDS ORDERED: DICY20 PO (23:39)
[2025-09-07] MEDS ORDERED: Nexium40 MG PO (23:39)
[2025-09-08 00:12] VITALS: BP 136/85
== END 2025-09-08 00:13 | disposition home or self-care (01) ==
LOC: ER 21:12
PROVIDERS: Physician Assistant; Student in an Organized Health Care Education/Training Program
DX: R10.9 Unspecified abdominal pain (principal); R11.0 Nausea; G43.909 Migraine, unspecified, not intractable, without status migrainosus; Z87.891 Personal history of nicotine dependence; Z79.899 Other long term (current) drug therapy; Z88.6 Allergy status to analgesic agent; Z88.5 Allergy status to narcotic agent; Z88.0 Allergy status to penicillin; Z88.8 Allergy status to other drugs, medicaments and biological substances
CPT/HCPCS: 71045; 74177; 80053; 81001; 84484; 85025; 93005; 93010; 96374; 96375; 99284-25; A9270; J2405; J2470; Q9967

== ENCOUNTER 2025-09-13 20:31 | Emergency (ER) | payer OTHER ==
[~2025-09-13] VITALS: Ht 162.6 cm; Wt 73.5 kg
[~2025-09-13 20:31] MED LIST changes: +DICY20 PO; +Nexium40 MG PO
[2025-09-13] MEDS ORDERED: Ketorolac Tromethamine 15mg Vial IM ONE (23:40)
[2025-09-14] MEDS ORDERED: Voltaren100 GM TOP (00:07)
[2025-09-14 00:19] VITALS: BP 162/112
== END 2025-09-14 00:20 | disposition home or self-care (01) ==
LOC: ER 20:31
DX: S49.92XA Unspecified injury of left shoulder and upper arm, initial encounter (principal); X58.XXXA Exposure to other specified factors, initial encounter; Z87.891 Personal history of nicotine dependence; Z79.899 Other long term (current) drug therapy; Z88.6 Allergy status to analgesic agent; Z88.0 Allergy status to penicillin; Z88.5 Allergy status to narcotic agent; Z88.8 Allergy status to other drugs, medicaments and biological substances
CPT/HCPCS: 73030; 96372; 99283-25; J1885

== ENCOUNTER 2025-10-07 06:49 | Emergency (ER) | payer OTHER ==
[~2025-10-07] VITALS: Ht 170.2 cm; Wt 73.5 kg
[~2025-10-07 06:49] MED LIST changes: +SERT50 PO; +Voltaren100 GM TOP
[2025-10-07 10:51] VITALS: BP 145/94
[2025-10-07] MEDS ORDERED: RX Prepack 6 Tabs Oxycodone 5mg UD ONE (11:00)
== END 2025-10-07 11:05 | disposition home or self-care (01) ==
LOC: ER 06:49
DX: M25.512 Pain in left shoulder (principal); M25.511 Pain in right shoulder; G89.29 Other chronic pain; G43.909 Migraine, unspecified, not intractable, without status migrainosus; Z88.6 Allergy status to analgesic agent; Z88.0 Allergy status to penicillin; Z88.5 Allergy status to narcotic agent; Z88.8 Allergy status to other drugs, medicaments and biological substances
CPT/HCPCS: 93005; 93010; 99283-25; A9270